=== PATIENT | female | born 1940 | race Caucasian/White ===

== ENCOUNTER → 2020-05-01 12:29 | Outpatient (CLI) | payer MEDICARE, OTHER, SELFPAY ==
--- NOTE | ~2020-05-01 | MM_ITS ---
EXAMINATION: MM screening tim BI w brianna HISTORY: Screening mammogram TECHNIQUE: Craniocaudal and mediolateral oblique 3-D tomosynthesis images were obtained and synthetic 2-D images were generated. CAD analysis was submitted and interpreted. COMPARISON: 03/04/2018, 02/16/2017, 03/10/2013 BREAST PARENCHYMAL COMPOSITION: The breasts are heterogeneously dense, which may obscure small masses . FINDINGS: Scattered benign-appearing calcifications are present. There is no evidence of suspicious m ass, calcification, or architectural distortion to suggest malignancy in either breast. There has bee n no suspicious interval change. IMPRESSION: 1. No mammographic evidence of malignancy. 2. Recommend routine screening mammography in one year. BI-RADS Category 2: Benign finding(s). Reviewed, dictated and finalized at location A. OL EXAMINER
== END ==
PROVIDERS: PCP Family Medicine; Visit Provider Physician Assistant
DX: Z12.31 Encounter for screening mammogram for malignant neoplasm of breast (principal)
CPT/HCPCS: 77063; 77067

== ENCOUNTER 2020-07-20 09:13 | Outpatient (CLI) | payer MEDICARE, OTHER, SELFPAY | END 2020-07-20 09:14 | disposition home or self-care (01) | LOC: ANHCOVIDVC 09:13 | PROVIDERS: PCP Family Medicine | DX: Z23 Encounter for immunization (principal) | CPT/HCPCS: 0001A; 91300 ==

== ENCOUNTER 2020-07-23 07:09 | Outpatient (CLI) | payer MEDICARE, OTHER, SELFPAY ==
[2020-07-23 07:59] LABS: Alanine Aminotransferase 13 U/L (4-35); Alkaline Phosphatase 50 U/L (38-126); Anion Gap 4 mmol/L (8-16); Aspartate Amino Transferase 31 U/L (14-36); Bilirubin,Total 0.5 mg/dL (0.2-1.3); Blood Urea Nitrogen 9 mg/dL (7-17); Calcium 8.9 mg/dL (8.4-10.2); Carbon Dioxide 35 mmol/L (22-30); Chloride 97 mmol/L (98-107); Estimated Glomerular Filt Rate > 60; Glucose 91 mg/dL (65-105); Potassium 3.7 mmol/L (3.4-5.0); Sodium 136 mmol/L (137-145)
[2020-07-23 08:54] LABS: Erythrocyte Sedimentation Rate 26 mm/hr (0-20)
[2020-07-23 10:11] LABS: Rheumatoid Factor < 8.6 IU/ML (<12)
[2020-07-26 05:11] LABS: Adrenocorticotropic Hormone 18 pg/mL (6-50)
[2020-07-27 08:16] LABS: Prolactin 2.2 ng/mL (***)
[2020-08-06 13:50] LABS: IGFBP-1 12
== END 2020-07-23 07:10 | disposition home or self-care (01) ==
PROVIDERS: PCP Family Medicine; Visit Provider Internal Medicine Endocrinology, Diabetes & Metabolism
DX: D35.2 Benign neoplasm of pituitary gland (principal); M19.90 Unspecified osteoarthritis, unspecified site
CPT/HCPCS: 36415; 80053; 82024; 82533; 84146; 84443; 85652; 86038; 86430

== ENCOUNTER 2020-08-10 09:22 | Outpatient (CLI) | payer MEDICARE, OTHER, SELFPAY | END 2020-08-10 09:23 | disposition home or self-care (01) | LOC: ANHCOVIDVC 09:22 | PROVIDERS: PCP Family Medicine | DX: Z23 Encounter for immunization (principal) | CPT/HCPCS: 0002A; 91300 ==

== ENCOUNTER 2020-09-12 10:45 | Outpatient (CLI) | payer MEDICARE, OTHER, SELFPAY ==
[2020-09-12 11:28] LABS: Eosinophils Absolute Auto 0.1 K/mm3 (0-0.3); Eosinophils Percent Auto 2.4 % (0-4.4); Hematocrit 34.8 % (37.0-47.0); Hemoglobin 11.8 g/dL (12.0-15.0); Immature Granulocyte Absolute 0.01 K/mm3 (0.00-0.031); Immature Granulocyte Percent A 0.2 % (0-0.5); Lymphocytes Absolute Auto 0.97 K/mm3 (0.9-3.2); Mean Corpuscular HGB Conc 33.9 g/dl (32-36); Mean Corpuscular Hemoglobin 29.9 pg (26-34); Mean Corpuscular Volume 88.1 fl (80-100); Mean Platelet Volume 8.7 fl (7.4-10.4); Monocytes Absolute Auto 0.4 K/mm3 (0.1-0.6); Monocytes Percent Auto 8.8 % (2.6-8.5); Neutrophils Absolute Auto 2.7 K/mm3 (1.3-6.7); Neutrophils Percent Auto 64.6 % (45.5-73.1); Platelet Count Result 152 k/mm3 (150-375); Red Blood Count 3.95 M/mm3 (4.2-5.4); Red Cell Distribution Width 12.1 % (11.5-14.5); White Blood Count 4.2 K/mm3 (4.5-10.0)
== END 2020-09-12 10:46 | disposition home or self-care (01) ==
PROVIDERS: PCP Family Medicine; Visit Provider Family Medicine
DX: R60.9 Edema, unspecified (principal); D64.9 Anemia, unspecified
CPT/HCPCS: 36415; 85025

== ENCOUNTER 2020-09-12 10:51 | Outpatient (CLI) | payer MEDICARE, OTHER, SELFPAY ==
[2020-09-12 11:42] LABS: Alanine Aminotransferase 11 U/L (4-35); Albumin Level 4.2 g/dL (3.5-5.1); Alkaline Phosphatase 47 U/L (38-126); Anion Gap 5 mmol/L (8-16); Aspartate Amino Transferase 29 U/L (14-36); Bilirubin,Total 0.3 mg/dL (0.2-1.3); Blood Urea Nitrogen 12 mg/dL (7-17); Calcium 8.8 mg/dL (8.4-10.2); Carbon Dioxide 29 mmol/L (22-30); Chloride 100 mmol/L (98-107); Estimated Glomerular Filt Rate > 60; Glucose 84 mg/dL (65-105); Potassium 3.8 mmol/L (3.4-5.0); Sodium 134 mmol/L (137-145)
[2020-09-12 12:48] LABS: Free T4 Free Thyroxine 1.16 ng/mL (0.78-2.19)
[2020-09-12 12:49] LABS: Folic Acid 12.8 ng/mL (2.76->20)
[2020-09-16 09:00] LABS: Prolactin 1.5 ng/mL (***)
== END 2020-09-12 10:52 | disposition home or self-care (01) ==
PROVIDERS: PCP Family Medicine
DX: D35.2 Benign neoplasm of pituitary gland (principal); I10 Essential (primary) hypertension; E53.8 Deficiency of other specified B group vitamins
CPT/HCPCS: 36415; 80053; 82607; 82746; 84146; 84439; 84443; 85025

== ENCOUNTER 2020-09-18 08:27 | Outpatient (CLI) | payer MEDICARE, OTHER, SELFPAY ==
[2020-09-18 09:11] LABS: Reticulocyte Hemoglobin Conten 34.8 pg (28.2-35.7); Reticulocyte Percent 1.46 % (0.7-4.3); Reticulocytes Absolute 0.06 B/L (32.2-175.7)
[2020-09-18 09:36] LABS: Iron 87 ug/dL (37-170)
[2020-09-18 09:45] LABS: Percent Iron Saturation 25 % (20-50)
[2020-09-22 10:26] LABS: Red Blood Cell Folate 702 ng/mL RBC (>280)
== END 2020-09-18 08:28 | disposition home or self-care (01) ==
PROVIDERS: PCP Family Medicine; Visit Provider Family Medicine
DX: D64.9 Anemia, unspecified (principal)
CPT/HCPCS: 36415; 82607; 82728; 82747; 83540; 83550; 85046

== ENCOUNTER 2021-02-18 17:11 | Emergency (ER) | payer MEDICARE, OTHER, SELFPAY ==
--- NOTE | ~2021-02-18 | XR_ITS ---
EXAMINATION: XR foot RT min 3V EXAM DATE: 02/18/2021 17:30 INDICATION: fall down steps yesterday/medial foot pain. TECHNIQUE: Right foot dorsoplantar, lateral and oblique projections obtained and reviewed. Correlati on is made to calcaneus x-ray 2011. FINDINGS: Right metatarsal bones unremarkable. There are no acute right foot fractures or dislocatio ns identified. There is no subcutaneous gas. There is soft tissue swelling over the midfoot medially . There are no radiopaque foreign bodies. IMPRESSION: 1. XR foot RT min 3V exam without acute osseous findings. 2. Soft tissue swelling. . Reviewed, dictated and finalized at location A.
[2021-02-18 17:22] VITALS: BP 181/88; PULSE 83; RESP 18; TEMP 36.8; O2SAT 100
--- NOTE | 2021-02-18 17:51 | ED.LOWEXIN ---
HPI - Extremity Injury (Lower) General Chief Complaint: Extremity Injury, Lower Stated Complaint: Rt foot pain due to fall Time Seen by Provider: 02/18/21 17:41 Source: patient and RN notes reviewed Mode of arrival: ambulatory Limitations: no limitations History of Present Illness HPI Narrative: 80-year-old female presents with concern for right foot pain and swelling. Reports yesterday she slid down stairs causing the injury. Reports she has been walking on it, however it hurts to walk on. She denies other intervention. Reports pain with flexing the ankle and toes. MD complaint: foot injury Related Data Home Medications Medication Instructions Recorded Confirmed metoprolol succinate 25 mg 25 mg PO DAILY 08/07/20 02/18/21 tablet,extended release 24 hr vitamin B complex [B 1 tablet PO DAILY 02/18/21 02/18/21 Complex-Vitamin B12] Allergies Allergy/AdvReac Type Severity Reaction Status Date / Time codeine Allergy Intermediate severe Verified 02/18/21 17:24 itching Review of Systems Review of Systems: CONSTITUTIONAL: Denies malaise, chills, sweats, or fever. SKIN: Denies lacerations, abrasions MUSCULOSKELETAL: Reports right foot pain and swelling NEUROLOGIC: Denies numbness, weakness All systems reviewed & are unremarkable except as noted in HPI and below PMFSH Family History Family History Grandparent Family history of glaucoma Cerebrovascular accident Carcinoma of colon Sibling Family history of cardiovascular disease Family history of lung cancer Mother Diabetes mellitus Father Depression Hypertension Cerebrovascular accident Social History Social History Alcohol intake: never Comments At time of signature, agree with nursing past medical, surgical, social and family history. There is no relevant family history pertinent to the presenting complaint Exam Narrative: GENERAL: Well-appearing, well-nourished, and in no acute distress. HEAD: Normocephalic, atraumatic. EYES: PERRLA, conjunctivae clear NECK: Supple. CHEST: Speaks in full sentences. No respiratory distress. HEART: Regular rate and rhythm. Normal and equal peripheral pulses. EXTREMITIES: Right foot, digits have normal sensation, limited range of motion. Moderate dorsal edema, mild ecchymosis. 5/5 strength with digit flexion and extension. Normal sensation with sensitivity to light touch and pain. No point tenderness. No open wounds, no skin tenting, no devitalized tissue or atrophy, no trophic changes, no obvious deformity, alignment normal, nearby joints and structures intact. Distal pulses palpable and equal bilaterally, skin warm, dry, pink. Capillary refill less than 3 seconds. SKIN: Warm, dry, no rash. NEURO: Alert and oriented x3. PSYCH: Normal mood and affect Course Course Emergency Course: Patient is aware of diagnosis, understands and agrees to treatment plan. Anticipatory guidance given. Patient agrees to follow-up as directed and is aware of reasons to seek care at the emergency department. Portions of this record may have been created with voice recognition software Vital Signs Vital signs: Vital Signs Temperature 98.2 F 02/18/21 17: Pulse Rate 83 02/18/21 17:22 Respiratory Rate 18 02/18/21 17:22 Blood Pressure 181/88 H 02/18/21 17:22 Pulse Oximetry 100 02/18/21 17:22 Temperature 98.2 F 02/18/21 17:22 Pulse Rate 83 02/18/21 17:22 Respiratory Rate 18 02/18/21 17:22 Blood Pressure 181/88 H 02/18/21 17:22 Pulse Oximetry 100 02/18/21 17:22 Reviewed. MDM - Extremity Injury (Lower) MDM Narrative Medical decision making narrative: Patients injury and pain is consistent with musculoskeletal etiology. No signs of neurological or vascular compromise on exam. Compartments and tissues are soft without signs of compartment syndrome. Pain is felt appropriate for fur
== END 2021-02-18 18:02 | disposition home or self-care (01) ==
PROVIDERS: Emergency Provider Nurse Practitioner; PCP Family Medicine
DX: S99.921A Unspecified injury of right foot, initial encounter (principal); W10.9XXA Fall (on) (from) unspecified stairs and steps, initial encounter; I10 Essential (primary) hypertension; M19.90 Unspecified osteoarthritis, unspecified site; D64.9 Anemia, unspecified; F32.A Depression, unspecified
CPT/HCPCS: 73630; 99213; G0463

== ENCOUNTER 2021-03-15 11:42 | Outpatient (CLI) | payer MEDICARE, OTHER, SELFPAY ==
--- NOTE | ~2021-03-15 | XR_ITS ---
EXAMINATION: XR foot RT min 3V DATE: 03/15/2021 12:21 INDICATION: Right foot pain. TECHNIQUE: 4 views of right foot were obtained. COMPARISON: Right foot radiographs 02/18/2021 FINDINGS: There is dorsiflexion of the metatarsophalangeal joints. No fracture. There is mild osteoar thritis of first metatarsophalangeal joint and many of the interphalangeal joints. There are enthesop hytes at the posterior and plantar aspects of calcaneal tuberosity. IMPRESSION: 1. Mild polyarticular osteoarthritis. Reviewed, dictated and finalized at location A.
[2021-03-15 12:19] LABS: Basophils Percent Auto 0.7 % (0.2-1.2); Eosinophils Absolute Auto 0.1 K/mm3 (0-0.3); Eosinophils Percent Auto 2.9 % (0-4.4); Hematocrit 36.6 % (37.0-47.0); Hemoglobin 12.3 g/dL (12.0-15.0); Immature Granulocyte Absolute 0.01 K/mm3 (0.00-0.031); Immature Granulocyte Percent A 0.2 % (0-0.5); Immature Platelet Fraction Pct 2.2 % (0.9-11.2); Lymphocytes Absolute Auto 0.91 K/mm3 (0.9-3.2); Lymphocytes Percent Auto 20.6 % (18.3-44.2); Mean Corpuscular HGB Conc 33.6 g/dl (32-36); Mean Corpuscular Hemoglobin 30.4 pg (26-34); Mean Corpuscular Volume 90.4 fl (80-100); Mean Platelet Volume 8.9 fl (7.4-10.4); Monocytes Absolute Auto 0.3 K/mm3 (0.1-0.6); Monocytes Percent Auto 6.8 % (2.6-8.5); Neutrophils Percent Auto 68.8 % (45.5-73.1); Platelet Count Result 189 k/mm3 (150-375); Red Blood Count 4.05 M/mm3 (4.2-5.4); Red Cell Distribution Width 12.3 % (11.5-14.5); White Blood Count 4.4 K/mm3 (4.5-10.0)
[2021-03-15 12:40] LABS: Alanine Aminotransferase 13 U/L (4-35); Albumin Level 4.4 g/dL (3.5-5.1); Alkaline Phosphatase 64 U/L (38-126); Anion Gap 10 mmol/L (8-16); Aspartate Amino Transferase 29 U/L (14-36); Bilirubin,Total 0.7 mg/dL (0.2-1.3); Blood Urea Nitrogen 19 mg/dL (7-17); Calcium 9.2 mg/dL (8.4-10.2); Carbon Dioxide 28 mmol/L (22-30); Chloride 102 mmol/L (98-107); Estimated Glomerular Filt Rate 60; Glucose 103 mg/dL (65-110); Potassium 3.6 mmol/L (3.4-5.0); Sodium 140 mmol/L (137-145)
[2021-03-15 12:53] LABS: Free T4 Free Thyroxine 1.38 ng/mL (0.78-2.19)
[2021-03-15 14:02] LABS: Folic Acid 10.4 ng/mL (2.76->20); Vitamin B12 > 1000.0 pg/mL (239-931)
[2021-03-20 05:26] LABS: Prolactin 1.9 ng/mL (***)
== END 2021-03-15 11:43 | disposition home or self-care (01) ==
PROVIDERS: PCP Family Medicine; Visit Provider Internal Medicine Endocrinology, Diabetes & Metabolism
DX: D35.2 Benign neoplasm of pituitary gland (principal); I10 Essential (primary) hypertension; E53.8 Deficiency of other specified B group vitamins; M19.071 Primary osteoarthritis, right ankle and foot
CPT/HCPCS: 36415; 73630; 80053; 82607; 82746; 84146; 84439; 84443; 85025; 85055

== ENCOUNTER 2021-06-26 08:11 | Outpatient (CLI) | payer MEDICARE, OTHER, SELFPAY ==
[2021-06-26 09:46] LABS: Hemoglobin A1C 5.3 % (<5.7)
[2021-06-26 09:48] LABS: Alanine Aminotransferase 12 U/L (4-35); Albumin Level 4.1 g/dL (3.5-5.1); Alkaline Phosphatase 62 U/L (38-126); Anion Gap 8 mmol/L (8-16); Aspartate Amino Transferase 27 U/L (14-36); Bilirubin,Total 0.6 mg/dL (0.2-1.3); Blood Urea Nitrogen 23 mg/dL (7-17); Calcium 9.3 mg/dL (8.4-10.2); Carbon Dioxide 28 mmol/L (22-30); Chloride 104 mmol/L (98-107); Cholesterol 202 mg/dL (0-200); Estimated Glomerular Filt Rate 53; Glucose 99 mg/dL (65-110); HDL Direct 64 mg/dL; Potassium 3.8 mmol/L (3.4-5.0); Sodium 140 mmol/L (137-145); Triglycerides 65 mg/dL (<150)
[2021-06-26 10:00] LABS: LDL Cholesterol Direct 85 mg/dL
[2021-06-26 10:06] LABS: Free T4 Free Thyroxine 1.49 ng/mL (0.78-2.19)
[2021-06-29 02:04] LABS: Insulin Level Total 3.8 uIU/mL (<=19.6)
[2021-06-29 07:40] LABS: Prolactin 2.3 ng/mL (***)
== END 2021-06-26 08:12 | disposition home or self-care (01) ==
PROVIDERS: PCP Family Medicine; Visit Provider Internal Medicine Endocrinology, Diabetes & Metabolism
DX: R73.01 Impaired fasting glucose (principal); I10 Essential (primary) hypertension; D35.2 Benign neoplasm of pituitary gland
CPT/HCPCS: 36415; 80053; 80061; 83036; 83525; 84146; 84439; 84443

== ENCOUNTER 2021-07-02 12:37 | Outpatient (CLI) | payer MEDICARE, OTHER, SELFPAY ==
--- NOTE | ~2021-07-02 | MR_ITS ---
EXAMINATION: MR pituitary wo/w con DATE: 07/02/2021 14:22 INDICATION: Benign neoplasm of pituitary gland. TECHNIQUE: Magnetic resonance imaging (MRI) of the brain and brainstem was performed without and with 11 mL MultiHance intravenous contrast. Whole-brain sequences included sagittal T1-weighted FSE, axia l diffusion-weighted FS EPI, axial T2*-weighted GRE, axial T2-weighted FLAIR Propeller, axial SWAN, a nd axial T2-weighted Propeller. Small fzfjd-hq-eiiy sequences included sagittal and coronal T1-weight ed FSE centered at the pituitary. Postcontrast sequences included small ryonj-ct-isdp coronal T1-sanford ghted FSE in a time course and sagittal T1-weighted FSE and whole-brain axial T1-weighted FSE. Appare nt diffusion coefficient (ADC) maps were created. COMPARISON: Brain MRI 03/06/2011 FINDINGS: There is a 1.6 x 0.7 x 1.5 cm cystic mass in the pituitary. There is leftward displacement of the infundibulum. There are scattered areas of nonspecific increased T2-weighted signal intensity in the cerebral white matter, which is within normal limits for the patient's age. There is no acute ischemic infarct. There are punctate foci of susceptibility artifact in the right basal ganglia and r ight insula, likely old microhemorrhages. The ventricles are normal in size. There are likely changes of ocular lens replacement surgeries. There is mild mucosal thickening in the ethmoid sinuses. The m astoid air cells are normal. IMPRESSION: 1. 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 The prior MRI demonstrated a solid 2.1 x 1.9 x 1.9 cm ma ss on 03/06/2011. 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 Reviewed, dictated and finalized at location A. OR WOMEN'S GARMENT ALTERATION IMPRESSION: 1. 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 The prior MRI demonstrated a solid 2.1 x 1.9 x 1.9 cm mass on 03/06/2011. 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
== END 2021-07-02 12:38 | disposition home or self-care (01) ==
LOC: ANHIMG 12:39
PROVIDERS: PCP Family Medicine; Visit Provider Internal Medicine Endocrinology, Diabetes & Metabolism
DX: D35.2 Benign neoplasm of pituitary gland (principal)
CPT/HCPCS: 70553; A9577

== ENCOUNTER 2021-10-09 10:00 | Outpatient (CLI) | payer MEDICARE, OTHER, SELFPAY ==
[2021-10-09 11:07] LABS: Cortisol Random 5.17 ug/dL
[2021-10-15 12:49] LABS: Adrenocorticotropic Hormone 9 pg/mL (6-50)
== END 2021-10-09 10:01 | disposition home or self-care (01) ==
PROVIDERS: PCP Family Medicine
DX: D35.2 Benign neoplasm of pituitary gland (principal)
CPT/HCPCS: 36415; 82024; 82533

== ENCOUNTER 2022-01-07 11:08 | Outpatient (CLI) | payer MEDICARE, OTHER, SELFPAY ==
[2022-01-07 12:19] LABS: Hemoglobin A1C 5.2 % (<5.7)
[2022-01-07 12:20] LABS: Cholesterol 200 mg/dL (0-200); HDL Direct 79 mg/dL; Triglycerides 70 mg/dL (<150)
[2022-01-07 12:32] LABS: LDL Cholesterol Direct 81 mg/dL
[2022-01-10 12:40] LABS: Insulin Level Total 2.3 uIU/mL (<=19.6)
[2022-01-11 07:20] LABS: Prolactin 1.1 ng/mL (***)
== END 2022-01-07 11:09 | disposition home or self-care (01) ==
PROVIDERS: PCP Family Medicine; Visit Provider Internal Medicine Endocrinology, Diabetes & Metabolism
DX: R73.01 Impaired fasting glucose (principal); D35.2 Benign neoplasm of pituitary gland; I10 Essential (primary) hypertension
CPT/HCPCS: 36415; 80061; 83036; 83525; 84146; 84436; 84443

== ENCOUNTER 2022-02-18 14:40 | Outpatient (CLI) | payer MEDICARE, OTHER, SELFPAY ==
--- NOTE | ~2022-02-18 | DEXA_ITS ---
Bone Density Report Name: JUAN KRISHNAMURTHY Age: 81 Sex: Female Ethnicity: White Date of : 1940 Indication: postmenopausal osteoporosis; height loss; Referring Provider: FERNANDO, BARRY Jenkins Study: Bone densitometry was performed. Exam Date: February 18, 2022 Accession number: [id number] Bone Density: Region BMD T-score Z-score Classification AP Spine(L1-L4) 0.827 -2.0 0.7 Osteopenia Femoral Neck (Left) 0.653 -1.8 0.6 Osteopenia Total Hip (Left) 0.731 -1.7 0.4 Osteopenia Femoral Neck (Right) 0.645 -1.8 0.5 Osteopenia Total Hip (Right) 0.712 -1.9 0.2 Osteopenia Total Hip Mean 0.722 -1.8 0.3 Osteopenia World Health Organization criteria for BMD impression classify patients as: Normal (T-score at or above -1.0), Osteopenia (T-score between -1.0 and -2.5), or Osteoporosis (T-score at or below -2.5). 10-year Fracture Risk(1): Major Osteoporotic Fracture 15% Hip Fracture 4.1% Reported Risk Factors: [place] (), Neck BMD=0.645, BMI=26.8 (1) FRAX(R) Version 3.08. Fracture probability calculated for an untreated patient. Fracture probability may be lower if the patient has received treatment. Previous Exams: Region Exam Age BMD T-score BMD Change BMD Change Date g/cm2 vs Baseline vs Previous AP Spine (L1-L4) 02/18/2022 81 0.827 -2.0 0.077 (10.2%)* 0.077 (10.2%)* 02/16/2017 76 0.750 -2.7 Total Hip(Left) 02/18/2022 81 0.731 -1.7 -0.048 (-6.2%) -0.048 (-6.2%) 02/16/2017 76 0.779 -1.3 Total Hip(Right) 02/18/2022 81 0.712 -1.9 -0.035 (-4.7%) -0.035 (-4.7%) 02/16/2017 76 0.747 -1.6 *Denotes significance at 95% confidence level, LSC for AP Spine = 0.022 g/cm2, LSC for Total Hip = 0.027 g/cm2 Clinical Information Provided by Patient: Patient maximum height was 61 Menopause Age: 49 No regular weight bearing exercise Does not regularly consume dairy products Onset of menses at age 14 Number of children 3 Impression: The patient has low bone mass, based on the Total Spine T-score. The patient has an estimated ten-year risk of hip fracture of 4.1% and an estimated ten-year risk of major fracture of 15%, based on the WHO FRAX algorithm. The BMD for the Total Hip(Left) decreased, changing by -6.2% since the last DXA exam. The BMD for the Total Hip(Right) decreased, changing by -4.7% since the last DXA exam. Discussion: BONE DENSITY IS LOW AT ONE OR MORE SKELETAL SITES. THE PATIENT'S BMD AND CLINICAL
--- NOTE | ~2022-02-18 | MM_ITS ---
EXAMINATION: MM screening tim BI w brianna HISTORY: Screening mammogram TECHNIQUE: Craniocaudal and mediolateral oblique 3-D tomosynthesis images were obtained and synthetic 2-D images were generated. CAD analysis was submitted and interpreted. COMPARISON: 05/01/2020, 03/04/2018, 02/16/2017 BREAST PARENCHYMAL COMPOSITION: The breasts are heterogeneously dense, which may obscure small masses . FINDINGS: Scattered benign-appearing calcifications are present. No suspicious mass, calcification, o r architectural distortion are identified in either breast to suggest malignancy. There has been no s uspicious interval change. IMPRESSION: 1. No mammographic evidence of malignancy. 2. Recommend routine screening mammography in one year. BI-RADS Category 2: Benign finding(s). Reviewed, dictated and finalized at location A.
== END 2022-02-18 14:41 | disposition home or self-care (01) ==
PROVIDERS: PCP Family Medicine; Visit Provider Internal Medicine Endocrinology, Diabetes & Metabolism
DX: Z12.31 Encounter for screening mammogram for malignant neoplasm of breast (principal); Z78.0 Asymptomatic menopausal state; M85.88 Other specified disorders of bone density and structure, other site; M85.852 Other specified disorders of bone density and structure, left thigh; M85.851 Other specified disorders of bone density and structure, right thigh
CPT/HCPCS: 77063; 77067; 77080

== ENCOUNTER 2022-08-27 08:52 | Outpatient (CLI) | payer MEDICARE, OTHER, SELFPAY ==
[2022-08-27 09:43] LABS: Alanine Aminotransferase 15 U/L (6-35); Albumin Level 4.5 g/dL (3.5-5.1); Alkaline Phosphatase 55 U/L (38-126); Anion Gap 4 mmol/L (8-16); Aspartate Amino Transferase 26 U/L (14-36); Bilirubin,Total 0.7 mg/dL (0.2-1.3); Blood Urea Nitrogen 13 mg/dL (7-17); Carbon Dioxide 30 mmol/L (22-30); Chloride 105 mmol/L (98-107); Estimated Glomerular Filt Rate > 60; Glucose 94 mg/dL (65-110); Potassium 3.8 mmol/L (3.4-5.0); Sodium 139 mmol/L (137-145)
[2022-08-27 10:03] LABS: Free T4 Free Thyroxine 1.63 ng/mL (0.78-2.19); Vitamin D 25 Hydroxy 46.7 ng/mL
[2022-08-31 15:14] LABS: Prolactin <1.0 ng/mL (***)
== END 2022-08-27 08:53 | disposition home or self-care (01) ==
LOC: ANHLAB 08:57
PROVIDERS: PCP Physician Assistant; Visit Provider Internal Medicine Endocrinology, Diabetes & Metabolism
DX: D35.2 Benign neoplasm of pituitary gland (principal); M85.80 Other specified disorders of bone density and structure, unspecified site
CPT/HCPCS: 36415; 80053; 82306; 84146; 84439; 84443

== ENCOUNTER 2022-12-04 14:29 | Outpatient (CLI) | payer MEDICARE, OTHER, SELFPAY ==
--- NOTE | 2022-12-04 14:50 | ECHO_ITS ---
Patient Info Name: Shadia Gillespie Age: 82 years : 1940 Gender: Female Ht: 61 in Wt: 130 lbs BSA: 1.60 m2 HR: 64 bpm BP: 172 / 84 mmHg Heart Rhythm: Sinus Rhythm Technical Quality: Good Exam Date: 12/04/2022 2:57 PM Exam Location: [facility] Patient Status: Outpatient Admit Date: 12/04/2022 Staff Ordering Physician: Caleb Craig PA-C Wire Fence Erector: Ginna Reyes RDCS Attending Provider: Caleb Craig PA-C Referring Physician: Rafa ALVARADO; Exam Type: CA echo doppler color flow Study Info Indications I35.0 - Nonrheumatic aortic (valve) stenosis I10 - Essential (primary) hypertension Complete two-dimensional, color flow and Doppler transthoracic echocardiogram is performed. Summary 1. Complete two-dimensional, color flow and Doppler transthoracic echocardiogram is performed. 2. Left ventricular chamber dimension is normal. 3. Left ventricular systolic function is normal, estimated at 60-65%. 4. The left ventricular diastolic function is grade II diastolic dysfunction. 5. E/e' 15 is elevated. 6. Left atrial chamber dimension is mildly enlarged. 7. There is mild aortic valve sclerosis. 8. There is mild aortic valve stenosis with a peak velocity of 183 cm/s, mean gradient of 7 mmHg, and aortic valve area of 1.8 cm2. 9. There is mild aortic valve regurgitation. 10. The mitral valve has mild anterior prolapse and moderate posterior prolapse. 11. There is mild to moderate mitral valve regurgitation. 12. There is mild to moderate tricuspid valve regurgitation. 13. No pulmonary hypertension, estimated pulmonary arterial systolic pressure is 35 mmHg. 14. There is trace pulmonic regurgitation. Left Ventricle E/e' 15 is elevated. Left ventricular chamber dimension is normal. Left ventricular systolic function is normal, estimated at 60-65%. The left ventricular diastolic function is grade II diastolic dysfunction. Right Ventricle Right ventricular systolic function is normal and with normal TAPSE 3.0 cm. Right ventricular chamber dimension is normal. Left Atria Left atrial chamber dimension is mildly enlarged. Right Atria Right atrial chamber dimension is normal. Aortic Valve The aortic valve is trileaflet. There is mild aortic valve sclerosis. There is mild aortic valve stenosis with a peak velocity of 183 cm/s, mean gradient of 7 mmHg, and aortic valve area of 1.8 cm2. There is mild aortic valve regurgitation. Pulmonic Valve There is trace pulmonic regurgitation. Mitral Valve The mitral valve has mild anterior prolapse and moderate posterior prolapse. There is no mitral valve stenosis. There is mild to moderate mitral valve regurgitation. Tricuspid Valve There is mild to moderate tricuspid valve regurgitation. No pulmonary hypertension, estimated pulmonary arterial systolic pressure is 35 mmHg. Pericardium/Pleural There is no pericardial effusion. Inferior Vena Cava Normal inferior vena cava with >50% collapse upon inspiration consistent with normal right atrial pressure, 5 mmHg. Aorta The aortic root size at the sinus of Valsalva is normal. Left Ventricular Outflow Tract Name Value Normal LVOT 2D LVOT Diameter 2.0 cm LVOT Doppler LVOT Peak Gradient
== END 2022-12-04 14:30 | disposition home or self-care (01) ==
PROVIDERS: PCP Physician Assistant; Visit Provider Physician Assistant
DX: I10 Essential (primary) hypertension (principal); I35.0 Nonrheumatic aortic (valve) stenosis; I34.0 Nonrheumatic mitral (valve) insufficiency; I36.1 Nonrheumatic tricuspid (valve) insufficiency; I35.1 Nonrheumatic aortic (valve) insufficiency
CPT/HCPCS: 93306

== ENCOUNTER 2023-02-14 08:53 | Outpatient (CLI) | payer MEDICARE, OTHER, SELFPAY ==
[2023-02-14 09:49] LABS: Hemoglobin A1C 5.2 % (<5.7)
[2023-02-14 10:08] LABS: Cortisol Random 8.48 ug/dL
[2023-02-19 05:20] LABS: Prolactin <1.0 ng/mL (***)
[2023-02-25 06:37] LABS: Insulin Level Total <1.0 uIU/mL (<=18.4)
== END 2023-02-14 08:54 | disposition home or self-care (01) ==
PROVIDERS: PCP Physician Assistant; Visit Provider Internal Medicine Endocrinology, Diabetes & Metabolism
DX: D35.2 Benign neoplasm of pituitary gland (principal); R73.01 Impaired fasting glucose
CPT/HCPCS: 36415; 82024; 82533; 83036; 83525; 84146

== ENCOUNTER → 2023-06-08 15:34 | Outpatient (CLI) | payer MEDICARE, OTHER, SELFPAY ==
--- NOTE | ~2023-06-08 | MM_ITS ---
EXAMINATION: MM screening [facility] BI w brianna HISTORY: Screening mammogram TECHNIQUE: Craniocaudal and mediolateral oblique 3-D tomosynthesis images were obtained and synthetic 2-D images were generated. CAD analysis was submitted and interpreted. COMPARISON: 02/18/2022, 05/01/2020, 03/04/2018 BREAST PARENCHYMAL COMPOSITION: The breasts are heterogeneously dense, which may obscure small masses . FINDINGS: RIGHT BREAST: An asymmetry is present in the anterior third of the outer breast 3 cm from the nipple on the craniocaudal view. LEFT BREAST: No suspicious mass, calcification, or architectural distortion are identified to suggest malignancy. There has been no suspicious interval change. IMPRESSION: 1. Right breast asymmetry. 2. Additional mammographic views and possible breast ultrasound are recommended. BI-RADS Category 0: Incomplete: Needs additional imaging evaluation. Reviewed, dictated and finalized at location A. H DERRICK OPERATOR IMPRESSION: 1. Right breast asymmetry. 2. Additional mammographic views and possible breast ultrasound are recommended . BI-RADS Category 0: Incomplete: Needs additional imaging evaluation.
== END ==
PROVIDERS: PCP Physician Assistant; Visit Provider Physician Assistant
DX: Z12.31 Encounter for screening mammogram for malignant neoplasm of breast (principal); R92.8 Other abnormal and inconclusive findings on diagnostic imaging of breast
CPT/HCPCS: 77063; 77067

== ENCOUNTER 2023-06-17 10:30 | Outpatient (CLI) | payer MEDICARE, OTHER, SELFPAY ==
[2023-06-17 11:20] LABS: Alanine Aminotransferase 12 U/L (6-35); Albumin Level 4.5 g/dL (3.5-5.1); Alkaline Phosphatase 59 U/L (38-126); Anion Gap 7 mmol/L (8-16); Aspartate Amino Transferase 27 U/L (14-36); Bilirubin,Total 0.7 mg/dL (0.2-1.3); Blood Urea Nitrogen 21 mg/dL (7-17); Calcium 9.6 mg/dL (8.4-10.2); Carbon Dioxide 30 mmol/L (22-30); Chloride 102 mmol/L (98-107); Cholesterol 231 mg/dL (0-200); Estimated Glomerular Filt Rate 60; Glucose 96 mg/dL (65-110); HDL Direct 88 mg/dL; Potassium 4.2 mmol/L (3.4-5.0); Sodium 139 mmol/L (137-145); Triglycerides 83 mg/dL (<150)
[2023-06-17 11:32] LABS: LDL Cholesterol Direct 105 mg/dL
[2023-06-17 11:57] LABS: Free T4 Free Thyroxine 1.71 ng/mL (0.78-2.19)
[2023-06-17 12:26] LABS: Folic Acid 7.5 ng/mL (2.76->20)
[2023-06-20 07:46] LABS: Prolactin <1.0 ng/mL (***)
== END 2023-06-17 10:31 | disposition home or self-care (01) ==
LOC: ANHLAB 10:34
PROVIDERS: PCP Family Medicine; Visit Provider Nurse Practitioner Adult Health
DX: D64.9 Anemia, unspecified (principal); I10 Essential (primary) hypertension; E53.8 Deficiency of other specified B group vitamins; D35.2 Benign neoplasm of pituitary gland
CPT/HCPCS: 36415; 80053; 80061; 82607; 82746; 84146; 84439; 84443

== ENCOUNTER → 2023-06-30 08:09 | Outpatient (CLI) | payer MEDICARE, OTHER, SELFPAY ==
--- NOTE | ~2023-06-30 | MMUS_ITS ---
EXAMINATION: MM diagnostic tim RT w brianna, US breast RT limited HISTORY: Right breast asymmetry on screening mammogram TECHNIQUE: Additional 3-D tomosynthesis images of the right breast were performed and synthetic 2-D i mages were generated. CAD analysis was submitted and interpreted. High resolution limited right breas t ultrasound was performed. COMPARISON: 06/08/2023, 02/18/2022, 05/01/2020 FINDINGS: MAMMOGRAPHIC FINDINGS: There is an 11 mm x 9 mm oval, obscured, equal density mass in the anterior third of the outer breast at the 10:00 location, 2.5 cm from the nipple. ULTRASOUND: There is a 10 mm x 7 mm hypoechoic mass with irregular margins, posterior acoustic shadowing, and int ernal vascularity at the 9:00 location near the nipple. There is a 10 mm x 5 mm oval, isoechoic, and hypoechoic circumscribed mass with no posterior vascularity in the areas of posterior acoustic shadow ing at the 11:00 location near the nipple. IMPRESSION: 1. Suspicious right breast masses at the 9:00 and 11:00 locations. 2. Ultrasound-guided biopsy is recommended. BI-RADS category 4, suspicious findings. Reviewed, dictated and finalized at location A. SERVICE IMPRESSION: 1. Suspicious right breast masses at the 9:00 and 11:00 locations. 2. Ultrasound-guided biopsy is recommended. BI-RADS category 4, suspicious findings.
== END ==
PROVIDERS: PCP Physician Assistant; Visit Provider Physician Assistant
DX: R92.8 Other abnormal and inconclusive findings on diagnostic imaging of breast (principal)
CPT/HCPCS: 76642; 77061; 77065; G0279

== ENCOUNTER 2023-07-07 09:12 | Outpatient (CLI) | payer MEDICARE, OTHER, SELFPAY ==
--- NOTE | ~2023-07-07 | MMUS_ITS ---
US breast biopsy RT w image, MM post biopsy invasive RT EXAMINATION: US GUIDED NEEDLE BIOPSY WITH VACUUM ASSISTANCE DATE: 07/07/2023 12:02 OPTOMECHANICAL TECHNICIAN INDICATION: Right breast masses seen on prior examination. Ultrasound-guided core biopsy is requested to evaluate for malignancy. TECHNIQUE AND FINDINGS: The risks and potential benefits of the procedure were discussed with the patient, and written inform ed consent was obtained. After sterile preparation of the right breast, 1% lidocaine was utilized fo r local anesthesia. 1% lidocaine with epinephrine was used for deep anesthesia. Masses were localize d in the right breast at 11:00 and 9:00 in the subareolar locations. A 10G vacuum-assisted biopsy gun needle was advanced through to the outer edge of the region of inter est from a superior and lateral approach utilizing sonographic guidance. A total of 4 tissue core sa mples were obtained through each lesion. An Inrad tissue marker clip was then placed at each biopsy site. Hemostasis was achieved. The patient tolerated procedure well and there was no evidence of immediate complication. The patien t was given verbal instructions partly is from the department. Right breast mammograms to document t issue marker clip placement. The tissue samples were submitted to surgical pathology for histologic a nalysis. IMPRESSION: 1. Successful ultrasound-guided vacuum-assisted biopsy of right breast masses with tissue marker greg cement. Please refer to pathology report for histologic analysis. Reviewed, dictated and finalized at location A. MECHANICAL TECHNICIAN IMPRESSION: 1. Successful ultrasound-guided vacuum-assisted biopsy of right breast masses with tissue marker placement. Please refer to pathology report for histologic a nalysis.
== END 2023-07-07 09:13 | disposition home or self-care (01) ==
LOC: ANHIMG 09:13
PROVIDERS: PCP Physician Assistant; Visit Provider Physician Assistant Medical
DX: N63.10 Unspecified lump in the right breast, unspecified quadrant (principal); R92.8 Other abnormal and inconclusive findings on diagnostic imaging of breast; N61.0 Mastitis without abscess
CPT/HCPCS: 19083; 88305; A4648

== ENCOUNTER 2023-08-11 09:45 | Outpatient (CLI) | payer MEDICARE, OTHER, SELFPAY ==
--- NOTE | ~2023-08-11 | MMUS_ITS ---
EXAMINATION: US_MAGSEEDRT_US, MM post biopsy invasive RT HISTORY: Mag seed placement at prior ultrasound-guided 9:00 and 11:00 right breast biopsy sites TECHNIQUE: The purpose of the procedure, technique and potential complications were discussed with th e patient. The patient indicated understanding and gave consent. Timeout procedure was performed. The skin of the right breast was prepared with sterile solution. Sterile drapes were applied. 1% lidocaine local anesthetic was administered to the skin along the lateral aspect of the right antelmo st. The mag seed needle was placed from a lateral approach into the 9:00 lesion using ultrasound guid ance. The needle tip was placed medially contiguous with the existing ultrasound-guided biopsy marker . The mag seed was deployed to the tip of the needle and the needle withdrawn. The ultrasound images were made to show the mag seed marker contiguous with the ultrasound marker. Subsequently, the skin was prepared with 1% local anesthetic at the lateral aspect of the 11:00 lesio n. Pushpa needle was introduced into the 11:00 lesion in the region of the biopsy marker. The mag see d was deployed to the tip of the needle and immediate contiguity with the ultrasound marker and the n eedle was withdrawn. Ultrasound images were obtained to confirm mag seed placement adjacent to the ul trasound marker. ML and CC mammographic exposures were obtained, revealing the mag seed markers in immediate contiguit y with the previous ultrasound biopsy markers. COMPARISON: July 07, 2023 post biopsy right mammogram July 07, 2023 right ultrasound-guided biopsy June 30, 2023 limited right breast ultrasound FINDINGS: On both ultrasound and mammographic imaging the mag seed placements are contiguous with the ultrasound-guided biopsy markers in both 9:00 and 11:00 lesions. IMPRESSION: Successful mag seed placement at prior ultrasound guided biopsy lesions of right breast at 9:00 and 1 1:00 Reviewed, dictated and finalized at location A. IMPRESSION: Successful mag seed placement at prior ultrasound guided biopsy lesions of righ t breast at 9:00 and 11:00
== END 2023-08-11 09:46 | disposition home or self-care (01) ==
PROVIDERS: PCP Family Medicine; Visit Provider Physician Assistant Surgical
DX: R92.8 Other abnormal and inconclusive findings on diagnostic imaging of breast (principal); N63.10 Unspecified lump in the right breast, unspecified quadrant
CPT/HCPCS: 19285; A4648

== ENCOUNTER 2023-08-13 08:53 | Outpatient (CLI) | payer MEDICARE, OTHER, SELFPAY ==
--- NOTE | 2023-08-13 08:58 | ECG_ITS ---
Measurements Intervals [place] Rate: 67 P: 92 KS: 248 QRS: -20 QRSD: 110 T: 18 QT: 430 QTc: 456 Interpretive Statements SINUS RHYTHM WITH FIRST DEGREE AV BLOCK INTRAVENTRICULAR CONDUCTION DELAY DELAYED PRECORDIAL R/S TRANSITION BORDERLINE ST-T WAVE ABNORMALITY- INF/HIGH LAT LEADS BASELINE ARTIFACT- I, II, III, AVR, AVL, AVF, V1-V6 BORDERLINE ECG NO PREVIOUS ECG AVAILABLE FOR COMPARISON Electronically Signed On 08-13-2023 9:36:12 CDT by Rio Meneses D.O.
[2023-08-13 10:18] LABS: Anion Gap 5 mmol/L (4-12); Blood Urea Nitrogen 16 mg/dL (7-17); Calcium 9.3 mg/dL (8.4-10.2); Carbon Dioxide 30 mmol/L (22-30); Chloride 97 mmol/L (98-107); Estimated Glomerular Filt Rate 60; Glucose 109 mg/dL (65-110); Potassium 3.8 mmol/L (3.4-5.0); Sodium 132 mmol/L (137-145)
== END 2023-08-13 08:54 | disposition home or self-care (01) ==
LOC: ANHSURGERY 08:57
PROVIDERS: Anesthesiology; PCP Family Medicine; Visit Provider Surgery
DX: Z01.818 Encounter for other preprocedural examination (principal); I10 Essential (primary) hypertension; Z51.81 Encounter for therapeutic drug level monitoring; I44.0 Atrioventricular block, first degree; I45.89 Other specified conduction disorders; R93.1 Abnormal findings on diagnostic imaging of heart and coronary circulation
CPT/HCPCS: 36415; 80048; 93005

== ENCOUNTER 2023-08-19 02:01 | Day surgery (SDC) | payer MEDICARE, OTHER, SELFPAY ==
[2023-08-11 15:09] VITALS: BMI 24.1
--- NOTE | 2023-08-11 15:36 | PC.NURSE ---
Report to the Outpatient Waiting Room, entrance under the green pavilion located off [facility], at time __8:00AM on date __08/19/23 . Planned Procedure Time: __10:00AM . Time changes happen often and if your time is changed the preop area will call you the afternoon before. - You and your visitor will be asked to self-screen and do not enter if you have any COVID symptoms. - A mask is optional within the hospital at this time. Patients may have clear liquids (water, carbonated beverages, clear teas, apple juice) until 3 hours prior to surgery with a maximum of 20 ounces. - No food from midnight until time of surgery. Take the following medications with a SIP of water the morning of surgery: __AMLODIPINE & METOPROLOL DO NOT STOP ANY OF YOUR OTHER PRESCRIPTION MEDICATIONS PRIOR TO SURGERY ?EXCEPT THE FOLLOWING Medications to discontinue per physician ____HOLD ALL VITAMINS/SUPPLEMENTS 3 DAYS PRE-OP PER ANESTHESIA Date to take last dose 08/15/23 Please no make-up, nail azeri, hairspray, perfume, deodorant, or body powder the day of surgery. No jewelry (including any body piercings) or valuables the day of surgery, leave them at home. Please take a shower or bath the night before, or the morning of, surgery with an antibacterial soap. Wear comfortable, loose fitting clothing. - Jewelry must be removed prior to entering the operating room. Rings and piercings that are not removed may be cut off. - The hospital will not accept responsibility for valuables. - Please leave all valuables, including medications, at home the day of surgery. If you are going home after surgery, a licensed haul driver must drive you home. - NO public transportation without another adult if you receive anesthesia. - We recommend that an adult stay with you for 24 hours following discharge. - We also recommend that you do not drive, make important decision, drink alcoholic beverages, or take any drugs that were not prescribed by your health care provider for at least 24 hours after your discharge time. Follow any additional instructions given to you from your surgeon. If you or anyone in your household have experienced Covid symptoms in the past week, please notify your surgeon or the nurse liaison at the phone number below for possible testing. Telephone instructions given to ____PATIENT and asked if any additional questions and then verbalized understanding. Patient advised to call surgeon office or pre surgery nurse liaison [phone] if any additional questions.
[2023-08-19] VITALS (9 sets, daily range): BP systolic 116–135; BP diastolic 48–88; PULSE 57–68; RESP 12–18; TEMP 36.3–36.8; O2SAT 94–100; BMI 24.3
--- NOTE | ~2023-08-19 | MM_ITS ---
MM_FAXITRON_MG 08/19/2023 11:24 Indication: Post surgical biopsy specimen Procedure: Single surgical specimen of the right breast Comparison: 08/11/2023 Findings: There are 2 magseed is contained in the surgical specimen. Findings relayed to the clinical service by Dr. Valerio on 08/19/2023 at 11:25 AM. Impression: 1: Surgical specimen contains 2 magseed devices. Reviewed, dictated and finalized at location A. Impression: 1: Surgical specimen contains 2 magseed devices.
--- NOTE | 2023-08-19 09:13 | WPDHPUPDATE1 ---
History and Physical Update Update Date/Time: 08/19/23 09:13 Plan for right breast lumpectomy of 2 lesions with magseed localization History and Physical has been reviewed, including an updated exam of the patient. There are NO changes in the patient's condition. Risks, benefits, and alternatives have been discussed and questions answered. Patient agrees to proceed with procedure.
[2023-08-19] MEDS: LACTATED RINGERS 1,000 ML 30 ML IV CONT (09:19)
[2023-08-19] MEDS: ACETAMINOPHEN 500 MG TABLET 1000 MG PO (09:19)
--- NOTE | 2023-08-19 09:42 | WPDANESEPPF ---
Anes - Initial Pre Proc Eval Procedure: Operation Date: 08/19/23 10:00 Proposed Procedures p Right Breast Excisional Biopsy Times Two with Mag Seed Localization, Possible Adjacent Tissue Transfer - Nina Maddox MD Date/Time: 08/19/23 09:42 Surgeon: Nina Maddox MD Pre Op Diagnosis: lump right breast Patient Data Age: 82 Gender: F Height: 1.55 m Weight: 58.4 kg Last Vital Signs Temp 36.8 C 08/19/23 09:07 Pulse 68 08/19/23 09:07 Resp 16 08/19/23 09:07 BP 135/48 L 08/19/23 09:07 Pulse Ox 100 08/19/23 09:07 O2 Del Method Room Air 08/19/23 09:07 Allergies Allergy/AdvReac Type Severity Reaction Status Date / Time codeine Allergy Intermediate severe Verified 08/19/23 08:37 itching Home Medications Medication Instructions Recorded Confirmed Type cabergoline 0.5 mg tablet 1 mg PO 2XW #60 tabs 05/30/20 08/19/23 Rx metoprolol succinate 25 mg 25 mg PO DAILY 08/07/20 08/11/23 History tablet,extended release 24 hr vitamin B complex (B 1 tablet PO DAILY 02/18/21 08/19/23 History Complex-Vitamin B12 tablet) amlodipine 10 mg tablet 10 mg PO QAM 08/11/23 08/11/23 History losartan 50 mg-hydrochlorothiazide 1 tablet PO QAM 08/11/23 08/19/23 History 12.5 mg tablet tramadol 50 mg tablet 50 mg PO Q6H PRN pain #8 tabs 08/19/23 Rx Patient hx anesthesia problems: none Family hx anesthesia problems: none Results Review: All pre-operative results and documents have been reviewed as part of the pre-operative evaluation. [facility] Past Medical History Medical History (Updated 08/19/23 @ 10:05 by Ravinder Mishra DO) Hypertension Vitamin B 12 deficiency Wellness examination Family History Family History Grandparent Family history of glaucoma Cerebrovascular accident Carcinoma of colon Sibling Family history of cardiovascular disease Family history of lung cancer Mother Diabetes mellitus Father Depression Hypertension Cerebrovascular accident Social History Social History (Updated 08/06/23 @ 14:10 by Skye Ibanez MA) Smoking status: Never smoker Alcohol intake: never Do You Feel Safe in your Home?: Yes Lack of Transportation: No Lack of Food: Never True Current Housing: I Have Housing Concerned About Future Housing: No Difficulty Paying Gas/Electric Bills: No Difficulty Paying for Meds: No Currently Unemployed: No Education: High School Diploma/GED Difficulty w/ Childcare or Family Care: No Living arrangements: with family Additional living arrangements comments: HUSB Spiritual care concerns: No Anes - Eval Final PreProcedure Day of Procedure 08/19/23 09:42 Patient weight: normal Heart: regular rate and rhythm Lungs: clear to auscultation Airway: Mallampati scale class II Neurological: alert and oriented Last oral intake: >/= 8 hours ASA classification: II Emergent: no Anesthetic plan: proceed Anesthesia type and monitoring: general LMA and standard monitoring Results Review: All pre-operative results and documents have been reviewed as part of the pre-operative evaluation. Informed Consent: The patient's anesthetic plan and its attendant risks and benefits were discussed with the patient/family/POA. Questions were solicited and answers provided to the satisfaction of the patient/family/POA.
[2023-08-19] MEDS: ceFAZolin 2 GM/D5W 50 ML 2 GM/50 ML BAG IVPB (10:32)
[2023-08-19] MEDS: BUPIVACAINE/EPINEPHRINE 0.5% 30 ML VIAL INFILTRATE (10:57)
--- NOTE | 2023-08-19 11:36 | P.OP_ITS ---
Procedure Note - Detailed Date of Procedure 08/19/23 Pre-op Diagnosis Right breast mass x2, discordant needle biopsy findings Post-op Diagnosis Same Procedure Performed 1. Right lumpectomy with 2 magseeds for localization of 2 masses 2. Retroareolar mass excisional biopsy 3. Nipple skin shave biopsy Surgeon Nina Maddox MD Page Makeup System Operator Sunitha Mcleod PA-C Anesthesia General Description of Procedure Patient was identified in the pre-operative area and brought to the OR suite. She underwent mass localization previously by IR with magseed placement x2 for the two separate masses. She was laid supine in the operating table and sequential compression devices were applied. General anesthesia was induced without difficulties. The right chest was prepped and draped in a sterile fashion. The sentimag probe was used to identify the area where the magseed was placed and a superior periareolar incision was made. Dissection was carried down through the subcutaneous tissue into the breast tissue. The lesion was identified with palpation and using sentimag probe, and a rim of normal breast tissue was excised along with the tumor as our lumpectomy specimen. The 2nd Mag seed was found just superior lateral and was close enough to the 1st magseed that it was excised EN bloc along the rim of normal breast tissue. Once the specimen was completely excised, it was oriented using surgical paint according to unmanned equipment operator instructions. The specimen was placed in the faxitron and 2 ra diographs were obtained and sent to Radiology for radiographic confirmation of both magseeds within the specimen along several calcifications. Upon inspection of the Faxitron images I felt that the medial margin was very close to the Mag seed and I decided to take an extra medial margin. This was oriented and sent to pathology as a fresh specimen. Once the radiographic confirmation was received, the wound was irrigated with saline and hemostasis was assured. Another palpable hard nodule was felt in the retroareolar area of the breast that measured approximately 0.5 cm and this was excised and sent to pathology as a fresh specimen. Patient's nipple skin also appeared excoriated and decision was made to send a shave biopsy of the nipple skin of this area. I inspected the wound cavity again and patient did have several palpable calcifications throughout but no other suspicious findings. Hemostasis was again obtained. The deep dermal layer was approximated using interrupted 3-0 vicryl followed by 4-0 monocryl for the skin. Dermabond was applied followed by a surgical bra. Patient was awoken from anesthesia and taken to the recovery area in stable condition. All needles, instruments and sponge counts were correct as reported by the operating room staff. Patient tolerated the procedure well with no immediate complications. Sunitha Mcleod PA-C was required for positioning and retraction throughout the entire case. Estimated Blood Loss 5 Pathology Yes Complications No immediate complications Condition Stable Disposition PACU [facility] Billing Surgery - Charge Forward: Surgery Billing (CPT 34542, CPT 57238, CPT 91661)
--- NOTE | 2023-08-19 11:36 | SUR.OPER ---
1043- incision 1114-ischemia of mass 1116-Dr. Maddox marked mass 1118- mammography notified 1122- images sent to mammography 1126- specimens sent to lab via PCT Zana 1127- radiology read images 1131- Nellie in lab received specimen
[2023-08-19] MEDS: BACITRACIN OINTMENT 15 GM TUBE 1 APPLIC TOPICAL (11:39)
[2023-08-19] MEDS: oxyCODONE HCL (*CRX) 5 MG TAB IR PO (13:11)
== END 2023-08-19 13:38 | disposition home or self-care (01) ==
PROVIDERS: PCP Family Medicine; Visit Provider Surgery
PROC: (CPT 19301; principal; 2023-08-19 10:00)
DX: N60.31 Fibrosclerosis of right breast (principal); N60.41 Mammary duct ectasia of right breast; N60.21 Fibroadenosis of right breast; L98.8 Other specified disorders of the skin and subcutaneous tissue; I10 Essential (primary) hypertension; E53.8 Deficiency of other specified B group vitamins
CPT/HCPCS: 19301; 19120; 11102; 76098; 88305; 88307; A9270; J0690; J1100; J2371; J2405; J2704; J3010; J7120; Q9968

== ENCOUNTER 2023-10-23 08:37 | Outpatient (CLI) | payer MEDICARE, OTHER, SELFPAY ==
[2023-10-23 11:02] LABS: Alanine Aminotransferase 12 U/L (6-35); Albumin Level 4.5 g/dL (3.5-5.1); Alkaline Phosphatase 51 U/L (38-126); Anion Gap 7 mmol/L (4-12); Aspartate Amino Transferase 27 U/L (14-36); Bilirubin,Total 0.7 mg/dL (0.2-1.3); Blood Urea Nitrogen 20 mg/dL (7-17); Calcium 9.3 mg/dL (8.4-10.2); Carbon Dioxide 29 mmol/L (22-30); Chloride 100 mmol/L (98-107); Estimated Glomerular Filt Rate 60; Glucose 92 mg/dL (65-110); Magnesium 1.9 mg/dL (1.6-2.3); Potassium 3.8 mmol/L (3.4-5.0); Sodium 136 mmol/L (137-145)
[2023-10-23 11:46] LABS: Parathyroid Intact 27.8 pg/mL (7.5-53.5)
[2023-10-23 11:55] LABS: Vitamin D 25 Hydroxy 39.2 ng/mL
[2023-10-25 03:54] LABS: FSH 56.4 mIU/mL; Prolactin 1.2 ng/mL
[2023-10-26 16:08] LABS: Growth Hormone ICMA 1.2 ng/mL (< OR = 7.1)
[2023-10-28 18:58] LABS: Adrenocorticotropic Hormone 16 pg/mL (6-50)
[2023-10-30 14:53] LABS: Z Score Female -0.1 SD (-2.0 - +2.0)
[2023-11-04 10:30] LABS: Reference Lab Test Result 0.3
== END 2023-10-23 08:38 | disposition home or self-care (01) ==
PROVIDERS: PCP Family Medicine; Visit Provider Internal Medicine
DX: D35.2 Benign neoplasm of pituitary gland (principal); M85.80 Other specified disorders of bone density and structure, unspecified site
CPT/HCPCS: 36415; 80053; 81050; 82024; 82306; 82340; 82533; 82570; 83001; 83002; 83003; 83735; 83970; 84100; 84146; 84305; 84439; 84443

== ENCOUNTER 2023-10-24 08:07 | Outpatient (CLI) | payer MEDICARE, OTHER, SELFPAY ==
[2023-10-24 11:30] LABS: Total Volume 24 Hour Urine 1800 ml
[2023-10-24 12:36] LABS: Creatinine 24 Hour Urine 0.7 gm/24 (0.8-1.8); Creatinine Urine 43.7 mg/dL
[2023-10-27 15:56] LABS: Total Volume 1900 mL
== END 2023-10-24 08:08 | disposition home or self-care (01) ==
LOC: ANHLAB 08:10
PROVIDERS: PCP Family Medicine; Visit Provider Internal Medicine
DX: M85.80 Other specified disorders of bone density and structure, unspecified site (principal)
CPT/HCPCS: 81050; 82340; 82570

== ENCOUNTER 2023-12-21 14:06 | Outpatient (CLI) | payer MEDICARE, OTHER, SELFPAY ==
--- NOTE | ~2023-12-21 | MR_ITS ---
EXAMINATION: MR pituitary wo/w con DATE: 12/21/2023 16:04 INDICATION: Benign neoplasm of pituitary gland. TECHNIQUE: Magnetic resonance imaging (MRI) of the brain and brainstem was performed without and with 10 mL MultiHance intravenous contrast. COMPARISON: Brain MRI 07/02/2021, 03/06/2011 FINDINGS: There is a 1.6 x 1.6 x 0.6 cm cystic pituitary mass. There are scattered areas of nonspecif ic increased T2-weighted signal intensity in the cerebral white matter, which is within normal limits for the patient's age. There is no intracranial hemorrhage or acute ischemic infarct. The ventricles are normal in size. There are likely changes of ocular lens replacement surgeries. The paranasal sin uses are clear. The mastoid air cells are normal. IMPRESSION: 1. Cystic pituitary mass, stable from 07/02/21 and decreased in size from 03/07/2011, consistent with a pituitary macroadenoma. Reviewed, dictated and finalized at location A. IMPRESSION: 1. Cystic pituitary mass, stable from 07/02/21 and decreased in size from 2010, consistent with a pituitary macroadenoma.
== END 2023-12-21 14:07 | disposition home or self-care (01) ==
LOC: ANHIMG 14:07
PROVIDERS: PCP Family Medicine; Visit Provider Internal Medicine
DX: D35.2 Benign neoplasm of pituitary gland (principal)
CPT/HCPCS: 70553; A9577

== ENCOUNTER 2024-05-25 10:25 | Outpatient (CLI) | payer MEDICARE, OTHER, SELFPAY ==
--- NOTE | ~2024-05-25 | XR_ITS ---
Right Shoulder Technique: AP and scapular Y views were obtained. Clinical History: Pain Findings: No fracture or dislocation is seen. Osseous alignment is anatomic. The glenohumeral joint i s intact. There is minimal AC joint degenerative change. Soft tissues are unremarkable. Impression: Minimal AC joint degenerative change. Reviewed, dictated and finalized at [facility]. NG IN LINE FEEDER Impression: Minimal AC joint degenerative change.
== END 2024-05-25 10:26 | disposition home or self-care (01) ==
PROVIDERS: PCP Family Medicine
DX: M25.511 Pain in right shoulder (principal)
CPT/HCPCS: 73030

== ENCOUNTER 2024-10-05 09:14 | Outpatient (CLI) | payer MEDICARE, OTHER, SELFPAY ==
--- OUTSIDE RECORDS SUMMARY | 2024-10-05 09:53 | XMS_ITS | Data Portability ---
Author Organization [facility] [employer], Main Office Address [address] [place] [address] Care Team Providers Care Promotional Marketing Agent Name Role Phone NATE LOUIE Primary Care Provider Assessment No assessment recorded. Plan of Treatment Reminders Order Date Submit Date Provider Last Modified By Organization Details Last Modified Time Details Appointments None recorded. Lab None recorded. Referral endocrinolo gy referral 2022 023 [email or web address] Priscila Gary MD, [address],, [facility] [address], [place], [address], 3 15:18:53 Procedures None recorded. Surgeries None recorded. Imaging None recorded. Medication Orders cabergoline 0.5 mg tablet 2022 023 [facility] 2425, [address] [facility], [place], [address], 14:29:01 Patient TargetsNo targets recorded. Patient InstructionsNo instructions recorded. Reason for Referral Endocrinology Referral for P rolactinoma Referring Physician: Yusra Casanova, Endocrinology, Encounter Date: 02/24/2023 Results Created Date Observation Date Name Description Value Unit Range Abnormal Flag Note LastModifiedBy Organization Detail LastModifiedTime 03/15/2003/15/2021 XR, foot No observ ation record ed. [id number] [facility] (Imaging) [address] [facility] [address], [place], [address], 07/16/2022 00:55:13 07/03/19 22 07/02/2021 MRI, pitui tary, w/wo contr ast No observ ation record ed. [id number], [place], [address], 07/16/2022 00:55:13 02/20/2002/18/2022 MAMMO , scree clarice, digit al, bilat eral No observ ation record ed. [id number], [place], [address], 07/16/2022 00:55:13 02/22/20 22 02/18/2022 bone densi ty No observ ation record ed. [id number] [address], [place], [address], 07/16/2022 00:55:13 Result Notes None recorded. Problems Name Problem SNOMED Code Status Onset Date Resolution Date Notes Provider Name and Address Organization Details Recorded Time Hypertensive disorder 54419828 Active 2021 Not Available [facility] 3 00:47:31 Essential hypertension 02986037 Active 2021 Not Available [facility] 3 00:47:32 Prolactinoma 727470969 Active 2022 JOSH Seth, [facility] 3 18:30:25 Impaired fasting glycemia 795205227 Active 2022 JOSH Seth, [facility] 3 18:31:14 Osteopenia 679214987 Active 2022 Yusra Casanova MD [address], [address] , [facility] 3 14:33:32 Problem Notes None recorded. Procedures Surgical History None recorded. Imaging Results Imaging Date Name Status LastModified by [facility] Details LastModified Time 03/15/2021 XR, foot completed [id number] 026 [facility] (Imaging) [address] [place], [place] [address]e [facility], [place], [address], 07/16/2022 00:55:13 07/02/2021 MRI, pituitary, w/wo contrast completed [id number] [id number] [facility] [address], [place], [address], 07/16/2022 00:55:13 02/18/2022 MAMMO, screening, digital, bilateral completed [id number] [address], [place], [address], 07/16/2022 00:55:13 02/18/2022 bone density completed [id number].[id number], [place], [address], 07/16/2022 00:55:13 Procedure Notes None recorded. Medical Equipment None Reported. Allergies No known drug allergies Medications Name Sig Start Date Stop Date Status Note LastModified by Organization Details LastModified Time cyclobenzap rine 10 mg tablet TAKE 1 TABLET BY MOUTH THREE TIMES DAILY 02/24 completed Not Available Not Available Not Available metoprolol succinate ER 100 mg tablet,exte nded release 24 hr TAKE 1 TABLET BY MOUTH DAILY 09/07 completed Not Available Not Available Not Available amlodipine 5 mg tablet TAKE 1 TABLET BY MOUTH ONCE DAILY IN THE MORNING FOR 90 DAYS active Not Available Not Available No t Available amlodipine 10 mg tablet TAKE 1 TABLET BY MOUTH ONCE DAILY IN THE MORNING active Not Available Not Available No t Available cabergoline 0.5 mg tablet TAKE 1 TABLET BY MOUTH TWICE A WEEK IN THE MORNING 2022 active Not Available Not Available Not Avai lable hydrochloro thiazide 12.5 mg capsule TK 1 C PO D 07/19 completed Not Available Not Available Not Available fluoxetine 10 mg capsule TAKE 1 CAPSULE BY MOUTH DAILY 02/24 completed Not Available Not Available Not Available cyanocobala min (vit B-12) 1,[address] 1 tablet every day by sublingua l route in the morning for 90 days. 03/26 completed Not Available Not Available Not Available metoprolol succinate ER 25 mg tablet,exte nded release 24 hr TAKE 1/2 TABLET BY MOUTH ONCE DAILY IN THE MORNING FOR 90 DAYS active Not Available Not Available No t Available losartan 50 mg-hydrochl orothiazide 12.5 mg tablet TAKE 1 TABLET BY MOUTH DAILY 09/07 completed Not Available Not Available Not Available losartan 100 mg tablet TAKE 1 TABLET BY MOUTH ONCE DAILY IN THE MORNING active Not Available Not Available No t Available naproxen 500 mg tablet TAKE 1 TABLET BY MOUTH TWICE DAILY 02/24 completed Not Available Not Available Not Available amoxicillin 875 mg-potassiu m clavulanate 125 mg tablet TK 1 T PO Q 12 H 07/19 completed Not Available Not Available Not Available amoxicillin 500 mg-potassiu m clavulanate 125 mg tablet TAKE 1 TABLET BY MOUTH EVERY 8 HOURS 02/24 completed Not Available Not Available Not Available cyanocobala min (vit B-12) 1,[address] one lozenge under tongue daily active Not Available Not Available No t Available Vitals Date Recorded Body mass index (BMI) Body height Oxygen saturation Oxygen saturation in Arterial blood by Pulse oximetry Heart rate Body temperature Body weight Systolic blood pressure Diastolic blood pressure Systolic blood pressure Diastolic blood pressure Provider Name and Address Organization Details Last Updated DateTime 1 24 kg/m2 157.48 cm 98 % 98 % 62 /min 98.4 [degF] 67773.6 g 190 mm[Hg] 80 mm[Hg] 186 mm[Hg] 80 mm[Hg] Not Available [facility] 3 00:44:25 Date Recorded Body mass index (BMI) Body height Oxygen saturation Oxygen saturation in Arterial blood by Pulse oximetry Heart rate Body temperature Body weight Systolic blood pressure Diastolic blood pressure Provider Name and Address Organization Details Last Updated DateTime 1 24.1 kg/m2 157.48 cm 98 % 98 % 64 /min 98 [degF] 27514.1 9 g 160 mm[Hg] 80 mm[Hg] Not Available [facility] 3 00:44:26 Date Recorded Body mass index (BMI) Body height Oxygen saturation Oxygen saturation in Arterial blood by Pulse oximetry Heart rate Body temperature Body weight Systolic blood pressure Diastolic blood pressure Provider Name and Address Organization Details Last Updated DateTime 2 24.3 kg/m2 157.48 cm 71 % 71 % 29 /min 97.8 [degF] 62303.7 9 g 150 mm[Hg] 70 mm[Hg] Not Available [facility] 3 00:44:26 Date Recorded Body mass index (BMI) Body height Oxygen saturation Oxygen saturation in Arterial blood by Pulse oximetry Heart rate Body temperature Body weight Systolic blood pressure Diastolic blood pressure Provider Name and Address Organization Details Last Updated DateTime 2 25 kg/m2 157.48 cm 91 % 91 % 66 /min 97.6 [degF] 22162.7 2 g 135 mm[Hg] 80 mm[Hg] Not Available [facility] 3 00:44:26 Date Recorded Body height Body mass index (BMI) Body weight Body temperature Respiratory rate Heart rate Systolic blood pressure Diastolic blood pressure Provider Name and Address Organization Details Last Updated DateTime 3 157.48 cm 24.3 kg/m2 41451.3 5 g 97.7 [degF] 16 /min 55 /min 143 mm[Hg] 65 mm[Hg] Iris Dobbins RN [place] [facility] 3 14:05:50 Social History Question Answer Notes LastModified by [employer] Details LastModified Time Tobacco Smoking Status Never Smoker Not Available [facility] 07/16/2022 00:41:20 Do You Have An Advance Directive? No MIGRATION.[id number] Information not available 07/16/2022 Are You Blind Or Do You Have Difficulty Seeing? No MIGRATION.094554 0442 Information not available 07/16/2022 What Is Your Level Of Caffeine Consumption? Moderate MIGRATION.186753 9855 Information not available 07/16/2022 In The 14 Days Before Symptom Onset, Have You Had Close Contact With A Laboratory-confirm ed COVID-19 While That Case Was Ill? No MIGRATION.516016 9401 Information not available 07/16/2022 In The 14 Days Before Symptom Onset, Have You Had Close Contact With A Person Who Is Under Investigation For COVID-19 While That Person Was Ill? No MIGRATION.059353 8100 Information not available 07/16/2022 Are You Deaf Or Do You Have Serious Difficulty Hearing? No MIGRATION.496206 2665 Information not available 07/16/2022 Which Illicit Or Recreational Drugs Have You Used? 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 MIGRATION.013486 9420 Information not available 07/16/2022 How Much Tobacco Do You Smoke? No MIGRATION.721827 2984 Information not available 07/16/2022 Have You Recently Traveled Abroad? No MIGRATION.433045 8075 Information not available 07/16/2022 Do You Have Difficulty Walking Or Climbing Stairs? No MIGRATION.212789 9028 Information not available 07/16/2022 Sex: Female Functional Status Question Answer Note LastModified by Organizat ion Details LastModified Time What is your level of alcohol consumption? None MIGRATION.910857 7358 Information not available 07/16/2022 Do you have transportation difficulties? No MIGRATION.342744 1460 Information not available 07/16/2022 Are you able to walk? YESWOREST MIGRATION.888265 0750 Information not available 07/16/2022 Do you have difficulty doing errands alone? No MIGRATION.359102 5844 Information not available 07/16/2022 Are you able to care for yourself? Yes MIGRATION.891157 3205 Information not available 07/16/2022 Do you have difficulty dressing or bathing? No MIGRATION.421941 8426 Information not available 07/16/2022 Do you or have you ever used e-cigarettes or vape? Never used electronic cigarettes MIGRATION.815478 1221 Information not available 07/16/2022 Mental Status Question Answer Note LastModified by Organizat ion Details LastModified Time Do you have difficulty concentrating, remembering or making decisions? No MIGRATION.[id number] 6 Information not available 07/16/2022 Family History Relationship Description Onset Age of this Age Resolved Age Notes LastModified by Organization Details LastModified Time Mother Diabetes mellitus MIGRATION.414 [id number] Not available 07/16/2022 00:42:31 Son Diabetes mellitus MIGRATION.108 [id number] Not available 07/16/2022 00:42:31 Father Hypertensive disorder MIGRATION.980 [id number] Not available 07/16/2022 00:42:31 Paternal Grandfather Hypertensive disorder MIGRATION.864 [id number] Not available 07/16/2022 00:42:31 Paternal Uncle Hypertensive disorder MIGRATION.684 [id number] Not available 07/16/2022 00:42:31 Maternal Grandmother Malignant tumor of breast MIGRATION.337 4433684 Not available 07/16/2022 00:42:31 Paternal Aunt Malignant tumor of breast times2 MIGRATION.483 [id number] Not available 07/16/2022 00:42:31 Sister Malignant neoplasm of lung MIGRATION.230 [id number] Not available 07/16/2022 00:42:31 Sister COVID-19 MIGRATION.307 [id number] Not available 07/16/2022 00:42:31 Medical History Condition Response BLINDNESS N RHEUMATIC FEVER N BLADDER PROBLEMS N OTHER # 1 N INFECTIOUS DISEASE N HEART ARRHYTHMIA N INSOMNIA N COPD N RADIATION / CHEMOTHERAPY N HIGH CHOLESTEROL / HYPERLIPIDEMIA N Other # 2 N EYE PROBLEMS N HYPERTHYROIDISM N BLOOD DISEASES N NEUROLOGICAL PROBLEMS N SURGERY N EDEMA N HYPOTHYROIDISM N DEPRESSION (INCLUDING POST ) N HAVE YOU BEEN HOSPITALIZED OR SEEN IN [facility] IN THE PAST YEAR ? N STROKE/TIA N THYROID DISEASE N BENIGN PROSTATIC HYPERPLASIA N MYOCARDIAL INFARCTION N OBESITY N EXCESSIVE PERSPIRATION N GERD/NAUSEA N ANEURYSM N OSTEOPOROSIS N INPATIENT PSYCH CARE N USE OF BLOOD THINNERS N NO SIGNIFICANT PAST MEDICAL HISTORY N SKIN PROBLEMS N DIABETES, TYPE N PARATHYROID DISEASE N BLOOD CLOTS N ASTHMA N HEPATITIS / LIVER DISEASE N PULMONARY DISEASE N GOUT N ALZHEIMER'S DISEASE N HERPES N RETINOPATHY N HEADACHES/MIGRAINES N SEIZURES/EPILEPSY N GI PROBLEMS N Low Testosterone N HEART DISEASE/HEART PROBLEMS N AIDS/HIV N KIDNEY DISEASE N LIVER DISEASE N HYPERTENSION Y CANCER: SPECIFY N BLOOD TRANSFUSION N ANESTHESIA COMPLICATIONS N ANEMIA/BLOOD DISORDER N ATRIAL FIBRILLATION N PULMONARY EMBOLISM N AUTOIMMUNE DISEASE N TUBERCULOSIS N GLAUCOMA N Gynecological HistoryNo gynecological history recorded. Obstetrics History GPAL:G 0 P 0 0 0 0 Past Encounters Encounter ID Performer Location Encounter Start Date Encounter Closed Date Diagnosis/Indication Diagnosis SNOMED-CT Code Diagnosis ICD10 Code Diagnosis Note [id number] Yusra Casanova MD _ATHENA_M IGRATION_ DEFAULT_1 _1 , 07/19/2020 00:00:00 07/19/2020 10:27:04 [id number] [facility] [place] [address] [place] [address] 07/20/2020 00:00:00 07/20/2020 15:10:47 [id number] Yusra Casanova MD Katherine_MARY JO [facility] [place] [address] [place] [address] 09/07/2020 00:00:00 09/07/2020 16:29:46 [id number] Yusra Casanova MD [facility] [place] [address] [place] [address] 12/04/2020 00:00:00 12/04/2020 18:31:22 [id number] Yusra Casanova MD [facility] [place] [address] [place] [address] 03/26/2021 00:00:00 03/26/2021 11:22:46 [id number] Yusra Casanova MD [facility] [place] [address] [place] [address] 07/23/2021 00:00:00 07/23/2021 11:22:50 [id number] Yusra Casanova MD [facility] [place] [address] [place] [address] 03/04/2022 00:00:00 03/04/2022 14:45:30 [id number] Yusra Casanova MD [facility] [place] [address] [place] [address] 02/24/2023 13:55:48 02/24/2023 15:18:53 Prolactinoma 889608682 D35.2 Last MRI from 2021 revealed smaller cyst- prolactin low and controlled - continue on cabergolin e twice weekly as patient tolerating well. Refer to endocrinol ogy per patient request. Osteopenia [id number] M85 .80 Continue on calcium 1200 mg daily along with vitamin D 3 800 IU daily. Continue with daily weight bearing exercise. Spent up to 20 minutes preparing to see the patient (eg, review of tests), obtaining and/or reviewing separately obtained history, performing a medically appropriat e examinatio n and evaluation , counseling and educating the patient, ordering medication s, tests, along with documentin g clinical informatio n in the electronic health record, independen tly interpreti ng results and communicat ing results to the patient. Patient can be followed by PCP - she/he is aware of my resignatio n and last day of February 27. If needed his/her PCP can refer patient to another endocrinol ogist in the area. All questions /concerns answered and refills necessary at visit today. Health Concerns Section Related Observation LastModified by Organization Detai ls LastModified Time None Recorded Concern Status LastModified by Organization Details LastModified Time None Recorded Advance Directives Directive N: Payers Encounter Date Sequence Insurance Name Policy Number Policy Diez Covered Member ID Diez Member ID Guarantor Name 02/24/2023 1 [place] Shadia Bettie Gillespie [id number] Shadia Gillespie 02/24/2023 2 [employer] (MEDICARE SUPPLEMENT) Shadia Gillespie [id number] Shadia Gillespie Notes Date Note Type Note Provider Name and Address Organization Details Recorded Time 02/24/2023 text/html 82 yo female com es in for follow up in management of prolactinoma and osteopenia. last seen in Feb 2022 at that time we continued cabergoline twice weekly as prolactin levels controlled/low. we recommended vitamin D and calcium for bone health. She has no issues with breast pain or discharge. She has no recent falls / fractures or kidney stones. labs from 02/14/23:cortisol 8.48 ug/dLa1c 5.2%prolactin <1 ng/mL Yusra Casanova MD [address] [facility] [address], [place], [address], [place] [facility] 02/24/2023 15:22:49 OBGyn Episode No OBEpisode recorded.
[2024-10-05 10:24] LABS: Alanine Aminotransferase 18 U/L (6-35); Albumin Level 4.6 g/dL (3.5-5.1); Alkaline Phosphatase 48 U/L (38-126); Anion Gap 8 mmol/L (4-12); Aspartate Amino Transferase 32 U/L (14-36); Bilirubin,Total 0.6 mg/dL (0.2-1.3); Blood Urea Nitrogen 13 mg/dL (7-17); Calcium 9.1 mg/dL (8.4-10.2); Carbon Dioxide 30 mmol/L (22-30); Chloride 99 mmol/L (98-107); Estimated Glomerular Filt Rate > 60; Glucose 89 mg/dL (65-110); Potassium 3.7 mmol/L (3.4-5.0); Sodium 137 mmol/L (137-145)
[2024-10-05 11:00] LABS: Free T4 Free Thyroxine 1.42 ng/dL (0.78-2.19)
[2024-10-06 05:27] LABS: FSH 48.7 mIU/mL; LH 18.8 mIU/mL; Prolactin 1.3 ng/mL
[2024-10-10 11:19] LABS: Z Score Female -0.8 SD (-2.0 - +2.0)
== END 2024-10-05 09:15 | disposition home or self-care (01) ==
PROVIDERS: PCP Family Medicine; Visit Provider Internal Medicine
DX: D35.2 Benign neoplasm of pituitary gland (principal)
CPT/HCPCS: 36415; 80053; 82024; 82533; 83001; 83002; 84146; 84305; 84439; 84443

== ENCOUNTER 2024-10-25 06:53 | Outpatient (CLI) | payer MEDICARE, OTHER, SELFPAY ==
--- OUTSIDE RECORDS SUMMARY | 2024-10-25 06:53 | XMS_ITS | Continuity of Care Document ---
Author Organization [facility] Address [address] [place] [address] Phone Care Team Providers Care Line Builder Name Role Phone Dmitry CHAWLA, OTR/L, Erna CASTILLO Unavailable Unavailable Procedures Procedure Date OT RE-EVALUATION THERAPEUTIC EXERCISES NEUROMUSCULAR RE-ED MANUAL THERAPY FUNC ACTIVITY 15 MIN PARAFFIN BATH THERAPEUTIC EXERCISES NEUROMUSCULAR RE-ED MANUAL THERAPY FUNC ACTIVITY 15 MIN PARAFFIN BATH THERAPEUTIC EXERCISES NEUROMUSCULAR RE-ED MANUAL THERAPY FUNC ACTIVITY 15 MIN PARAFFIN BATH BMI NOT Calculated Reason Specified Kamille ent NOT Eligible Pain Assess Negative DOC 2012 Medications Name Dose Freq Route DOC Jul No Falls or 1 Fall w/o Injury Screened f or Fall Risk OT EVALUATION THERAPEUTIC EXERCISES MANUAL THERAPY PARAFFIN BATH Advance Directives Directive Yes / No Effective Date File Name No Information Encounters Encounter Description Practice Location Reason(s) For Visit Diagnoses Date Provider Providers Copied on Encounter [facility], [address], [place], [place], [id number], [place] tel:[phone] [place] No Information 0 3 Dmitry Umanzor. [address] [facility], [address], [place], [place], Formerly named [facility], . tel:[phone], [place], [place], [address], tel:[phone] [place] No Information Apr-0 3-201 3 Hauschild Erna. [address] [place] [address], [address], [place], [place], Formerly named [facility], . tel:[phone] [address], [place], [place], [address], tel:[phone] [place] No Information Mar-2 7-201 3 Halizld Erna. [address] [place] [address], [address], [place], [place], Formerly named [facility], . tel:[phone], [place], [place], [address], tel:[phone] [place] Pain in joint involving hand Mar-2 0-201 3 [facility] Erna. [address] [place] [address], [address], [place], [address], . tel:[phone] Family History Family Member Type Diagnosis Age At Onset No Information Payers Payer name Insurance type Covered constitution party ID Authoriza tigodwin(s) [place] [id number] [facility] [id number] [facility] [id number] Social History Type Description Quantity Date Captured Comments Sex Female Smoking Status No Information Chief Complaint And Reason For Visit No Information Reason For Referral Reason For Referral No Information History Of Present Illness Encounter Date Complaint History Of Prese nt Illness No Information Functional Status Date Functional Assessmen t No Information Instructions Date Instruction Additional Infor mation No Information Assessments Type Assessment Date No Information Patient Care Teams Name Effective Dates (start - stop) Status Members No Information
--- OUTSIDE RECORDS SUMMARY | 2024-10-25 06:53 | XMS_ITS | Data Portability ---
Author Organization [facility] [employer], Main Office Address [address] [place] [address] Care Team Providers Care Brush Finisher Name Role Phone NATE LOUIE Primary Care Provider Assessment No assessment recorded. Plan of Treatment Reminders Order Date Submit Date Provider Last Modified By Organization Details Last Modified Time Details Appointments None recorded. Lab None recorded. Referral endocrinolo gy referral 2022 023 Priscila Gary MD, [address],, [facility] [address], [place], [address], 3 15:18:53 Procedures None recorded. Surgeries None recorded. Imaging None recorded. Medication Orders cabergoline 0.5 mg tablet 2022 023 [facility] 2425, [address] [facility], [place], [address], 14:29:01 Patient TargetsNo targets recorded. Patient InstructionsNo instructions recorded. Reason for Referral Endocrinology Referral for P rolactinoma Referring Physician: Yusra Casanova, Endocrinology, Encounter Date: 02/24/2023 Results Created Date Observation Date Name Description Value Unit Range Abnormal Flag Note LastModifiedBy Organization Detail LastModifiedTime 03/15/20 21 03/15/2021 XR, foot No observ ation record ed. [id number] [facility] (Imaging) [address] [facility] [address], [place], [address], 07/16/2022 00:55:13 07/03/19 22 07/02/2021 MRI, pitui tary, w/wo contr ast No observ ation record ed. [id number], [place], [address], 07/16/2022 00:55:13 02/20/2002/18/2022 MAMMO , scree clarice, digit al, bilat eral No observ ation record ed. [id number], [place], [address], 07/16/2022 00:55:13 02/22/20 22 02/18/2022 bone densi ty No observ ation record ed. [id number], [place], [address], 07/16/2022 00:55:13 Result Notes None recorded. 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 Medical Equipment None Reported. [...] % 71 % 29 /min 97.8 [degF] 91335.7 9 g 150 mm[Hg] 70 mm[Hg] Not Available [facility] 3 00:44:26 Date Recorded Body mass index (BMI) Body height Oxygen saturation Oxygen saturation in Arterial blood by Pulse oximetry Heart rate Body temperature Body weight Systolic blood pressure Diastolic blood pressure Systolic blood pressure Diastolic blood pressure Provider Name and Address Organization Details Last Updated DateTime 1 24 kg/m2 157.48 cm 98 % 98 % 62 /min 98.4 [degF] 11089.6 g 190 mm[Hg] 80 mm[Hg] 186 mm[Hg] 80 mm[Hg] Not Available [facility] 3 00:44:25 Date Recorded Body height Body mass index (BMI) Body weight Body temperature Respiratory rate Heart rate Systolic blood pressure Diastolic blood pressure Provider Name and Address Organization Details Last Updated DateTime 3 157.48 cm 24.3 kg/m2 33884.3 5 g 97.7 [degF] 16 /min 55 /min 143 mm[Hg] 65 mm[Hg] Iris Dobbins RN [place] [facility] [place] [facility] 3 14:05:50 Date Recorded Body mass index (BMI) Body height Oxygen saturation Oxygen saturation in Arterial blood by Pulse oximetry Heart rate Body temperature Body weight Systolic blood pressure Diastolic blood pressure Provider Name and Address Organization Details Last Updated DateTime 2 25 kg/m2 157.48 cm 91 % 91 % 66 /min 97.6 [degF] 77860.7 2 g 135 mm[Hg] 80 mm[Hg] Not Available [facility] 3 00:44:26 Date Recorded Body mass index (BMI) Body height Oxygen saturation Oxygen saturation in Arterial blood by Pulse oximetry Heart rate Body temperature Body weight Systolic blood pressure Diastolic blood pressure Provider Name and Address Organization Details Last Updated DateTime 1 24.1 kg/m2 157.48 cm 98 % 98 % 64 /min 98 [degF] 21363.1 9 g 160 mm[Hg] 80 mm[Hg] Not Available [facility] 3 00:44:26 Social History Question Answer Notes LastModified by Organizat ion Details LastModified Time Tobacco Smoking Status Never Smoker Not Available [facility] 07/16/2022 00:41:20 Do You Have An Advance Directive? No [id number] Information not available 07/16/2022 Are You Blind Or Do You Have Difficulty Seeing? No [id number].[id number] 4519 Information not available 07/16/2022 What Is Your Level Of Caffeine Consumption? Moderate MIGRATION.830020 6494 Information not available 07/16/2022 In The 14 Days Before Symptom Onset, Have You Had Close Contact With A Laboratory-confirm ed COVID-19 While That Case Was Ill? No [id number].[id number] 3454 Information not available 07/16/2022 In The 14 Days Before Symptom Onset, Have You Had Close Contact With A Person Who Is Under Investigation For COVID-19 While That Person Was Ill? No MIGRATION.329561 1237 Information not available 07/16/2022 Are You Deaf Or Do You Have Serious Difficulty Hearing? No MIGRATION.161222 4328 Information not available 07/16/2022 Which Illicit Or Recreational Drugs Have You Used? None MIGRATION.[id number] 2988 Information not available 07/16/2022 Do You Have A Medical Power Of Hydrostatic Tester? No MIGRATION.365878 9414 Information not available 07/16/2022 What Is Your Relationship Status? MIGRATION.212353 3338 Information not available 07/16/2022 How Much Tobacco Do You Smoke? No MIGRATION.961850 2112 Information not available 07/16/2022 Have You Recently Traveled Abroad? No MIGRATION.392038 2165 Information not available 07/16/2022 Do You Have Difficulty Walking Or Climbing Stairs? No MIGRATION.947153 6824 Information not available 07/16/2022 Sex: Female Functional Status Question Answer Note LastModified by Organizat ion Details LastModified Time What is your level of alcohol consumption? None MIGRATION.844647 0161 Information not available 07/16/2022 Do you have transportation difficulties? No MIGRATION.006281 0185 Information not available 07/16/2022 Are you able to walk? YESWOREST MIGRATION.905383 4542 Information not available 07/16/2022 Do you have difficulty doing errands alone? No MIGRATION.885389 9016 Information not available 07/16/2022 Are you able to care for yourself? Yes MIGRATION.794604 3844 Information not available 07/16/2022 Do you have difficulty dressing or bathing? No MIGRATION.877365 9473 Information not available 07/16/2022 Do you or have you ever used e-cigarettes or vape? Never used electronic cigarettes MIGRATION.535391 9778 Information not available 07/16/2022 Mental Status Question Answer Note LastModified by Organizat ion Details LastModified Time Do you have difficulty concentrating, remembering or making decisions? No [id number].[id number] 6 Information not available 07/16/2022 Family History Relationship Description Onset Age of this Age Resolved Age Notes LastModified by Organization Details LastModified Time Mother Diabetes mellitus [id number] [id number] Not available 07/16/2022 00:42:31 Son Diabetes mellitus MIGRATION.048 [id number] Not available 07/16/2022 00:42:31 Father Hypertensive disorder MIGRATION.552 [id number] Not available 07/16/2022 00:42:31 Paternal Grandfather Hypertensive disorder MIGRATION.223 [id number] Not available 07/16/2022 00:42:31 Paternal Uncle Hypertensive disorder MIGRATION.641 [id number] Not available 07/16/2022 00:42:31 Maternal Grandmother Malignant tumor of breast MIGRATION.647 [id number] Not available 07/16/2022 00:42:31 Paternal Aunt Malignant tumor of breast times2 MIGRATION.163 [id number] Not available 07/16/2022 00:42:31 Sister Malignant neoplasm of lung MIGRATION.440 [id number] Not available 07/16/2022 00:42:31 Sister COVID-19 MIGRATION.365 [id number] Not available 07/16/2022 00:42:31 Medical History Condition Response BLINDNESS N RHEUMATIC FEVER N BLADDER PROBLEMS N OTHER # 1 N INFECTIOUS DISEASE N HEART ARRHYTHMIA N INSOMNIA N RADIATION / CHEMOTHERAPY N COPD N HIGH CHOLESTEROL / HYPERLIPIDEMIA N Other # 2 N EYE PROBLEMS N HYPERTHYROIDISM N BLOOD DISEASES N NEUROLOGICAL PROBLEMS N SURGERY N EDEMA N HYPOTHYROIDISM N DEPRESSION (INCLUDING POST ) N HAVE YOU BEEN HOSPITALIZED OR SEEN IN [facility] IN THE PAST YEAR ? N STROKE/TIA N THYROID DISEASE N BENIGN PROSTATIC HYPERPLASIA N MYOCARDIAL INFARCTION N OBESITY N GERD/NAUSEA N EXCESSIVE PERSPIRATION N ANEURYSM N OSTEOPOROSIS N INPATIENT PSYCH [...] SNOMED-CT Code Diagnosis ICD10 Code Diagnosis Note [id number] Yusra Casanova MD _ATHENA_M IGRATION_ DEFAULT_1 _1 , 07/19/2020 00:00:00 07/19/2020 10:27:04 [id number] Yusra Casanova MD [facility] [address] [place] [address] 07/20/2020 00:00:00 07/20/2020 15:10:47 [id number] Yusra Casanova MD [facility] [address] [place] [address] 09/07/2020 00:00:00 09/07/2020 16:29:46 [id number] Yusra Casanova MD [facility] [address] [place] [address] 12/04/2020 00:00:00 12/04/2020 18:31:22 [id number] Yusra Casanova MD [facility] [address] [place] [address] 03/26/2021 00:00:00 03/26/2021 11:22:46 [id number] Yusra Casanova MD [facility] [address] [place] [address] 07/23/2021 00:00:00 07/23/2021 11:22:50 [id number] Yusra Casanova MD [facility] [address] [place] [address] 03/04/2022 00:00:00 03/04/2022 14:45:30 [id number] MD ANNE [facility] [address] [place] [address] 02/24/2023 13:55:48 02/24/2023 15:18:53 Prolactinoma 987769101 D35.2 Last MRI from 2021 revealed smaller cyst- prolactin low and controlled - continue on cabergolin e twice weekly as patient tolerating well. Refer to endocrinol ogy per patient request. Osteopenia 802412990 M85 .80 Continue on calcium 1200 mg [...] Diez Member ID Guarantor Name 02/24/2023 1 [employer] Shadia Gillespie [id number] Shadia Gillespie 02/24/2023 2 [facility] (MEDICARE SUPPLEMENT) Shadia Gillespie [id number] Shadia Gillespie Notes Date Note Type Note [...] 5.2%prolactin <1 ng/mL Yusra Casanova MD [address] [facility], [place] [address], [place], [address], [place] [facility] 02/24/2023 15:22:49 OBGyn Episode No OBEpisode recorded.
--- OUTSIDE RECORDS SUMMARY | 2024-10-25 06:53 | XMS_ITS | Clinical Summary ---
Author Organization [facility] Address [address] [place] [address] Care Team Providers Care In Service Education Teacher Name Role Phone Willow Gonzalez MD Primary Care Provider [phone] Allergies Active Allergy Reactions Criticality Noted Date Comments Codeine Medications escitalopram (LEXAPRO) 10 mg tablet Take 1 tablet (10 mg total) by mouth daily 5 Active losartan-hydroC HLOROthiazide (HYZAAR) 50-12.5 mg per tablet Take 1 tablet by mouth every morning 5 Active metoprolol XL (TOPROL-XL) 25 mg extended release tablet TAKE 1/2 TABLET BY MOUTH ONCE DAILY IN THE MORNING FOR 90 DAYS Active cabergoline (DOSTINEX) 0.5 mg tablet Take 1 tablet (0.5 mg total) by mouth 2 (two) times a week 24 tablet 3 5 Active nebivolol (BYSTOLIC) 10 mg tablet Take 10 mg by mouth daily. 10/20/19 25 Discontinu ed(Therapy completed) hydroCHLOROthia zide (MICROZIDE) 12.5 mg capsule Take 12.5 mg by mouth daily. 10/20/19 25 Discontinu ed(Therapy completed) cabergoline (DOSTINEX) 0.5 mg tablet TAKE 2 TABLETS BY MOUTH TWICE WEEKLY 16 tablet 1 0 10/20/19 25 Discontinu ed(Reorder ) amLODIPine (NORVASC) 10 mg tablet Take 1 tablet (10 mg total) by mouth daily 10/20/19 25 Discontinu ed(Therapy completed) amLODIPine (NORVASC) 5 mg tablet TAKE 1 TABLET BY MOUTH ONCE DAILY IN THE MORNING FOR 90 DAYS 10/20/19 25 Discontinu ed(Therapy completed) cyanocobalamin, vitamin B-12, 1,[address] one lozenge under tongue daily 10/20/19 25 Discontinu ed(Therapy completed) losartan (COZAAR) 100 mg tablet Take 1 tablet (100 mg total) by mouth daily 10/20/19 25 Discontinu ed(Therapy completed) Active Problems Problem Noted Date Diagnosed Date Osteopenia 02/24/2023 Impaired fasting glucose 09/12/2022 Acromegaly 09/26/2014 Hypertension 03/28/2011 Prolactinoma 03/28/2011 Overview (08/27/2017): Description: co secreting GH Encounters Date Type Department Care Team Description 10/19/2024 2:00 PM CDT Office Visit [facility] Endocrinology Metabolism and Lipid [address] [facility] [address], [address] [place] [address] Radha De Paz MD Acromegaly (HCC) (Primary Dx); Benign neoplasm of pituitary gland (HCC); Prolactinoma (HCC); Osteopenia, unspecified location; Other abnormal findings on diagnostic imaging of central nervous system 10/19/2024 Telephone [facility] Endocrinology Metabolism and Lipid [address] [facility] [address], [address] [place] [address] Darlene Villa RN Test Results (Re: labs and MRI results.) from Last 3 Months Immunizations Immunization Administration Dates Next Due Influenza, Quadrivalent, Hig h Dose, Preservative Free, Intrr 02/16/2023,03/17/2022 Influenza, Quadrivalent, Rec ombinant, Egg Free, Preservative Free, Intramuscular 03/13/2021,03/02/2020 Influenza, Trivalent, High D ose, Split, Preservative Free, Intramuscular 05/16/2024,02/25/2018 Influenza, Trivalent, Preservative Free, Intramu scular 03/18/2014 TD Preservative Free 09/16/2019 Medical History Medical History Date Comments Personal history of other me ntal and behavioral disorders History of depression - (Add ed by TW Conv) Family History Medical History Relation Name Comments Hypertension Father Family history of hypertension - (Added by TW Conv) Lung cancer Sister Family history of lung cancer - (Added by TW Conv) Relation Name Status Comments Father Sister Social History Tobacco Use Types Packs/Day Years Used Date Smoking Tobacco: Never Comments Unknown Sex and Gender Information Value Date Recorded Sex Assigned at Not on file 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 Gender Identity Not on file Sexual Orientation Not on file Obstetrics History Last Filed Vital Signs Vital Sign Reading Time Taken Comments Blood Pressure 119/65 10/19/2024 1:51 PM CDT Pulse 65 10/19/2024 1:51 PM CDT Temperature - - Respiratory Rate 18 10/19/2024 1:51 PM CDT Oxygen Saturation 96% 10/19/2024 1:51 PM CDT Inhaled Oxygen Concentration - - Weight 52.3 kg (115 lb 3.2 oz) 10/19/2024 1:51 P M CDT Height 152.4 cm (5') 10/19/2024 1:51 PM CDT Body Mass Index 22.5 10/19/2024 1:51 PM CDT Plan of Treatment Health Maintenance Due Date Last Done Comments Depression Screening 1940 Fall Risk Assessment 1940 Osteoporosis Screening-Bone Density Scan 1940 Hepatitis B Screening 09[birth year]21[birth year]1959 Pneumococcal vaccine 65+ (1 of 1 - PCV) 09/21/1991 Zoster Vaccine (1 of 2) 09/21/1991 Well Visit 65+ 2006 DTaP/Tdap/Td Vaccine (1 - Tdap) 09/17/2019 0 Covid-19 Vaccine (3 - 2023-2 5 season) 2024 08/10/2020, 07/20/2020 Influenza Vaccine Completed 05/16/2024, , 03/17/2022, Additional history exists Insurance MEDICARE [employer] [place] [employer] [place] [address] Care Teams In Service Education Teacher Relationship Specialty Start Date End Date Willow Gonzalez MD [address] [place] [address] PCP - General 09/30/16
--- OUTSIDE RECORDS SUMMARY | 2024-10-25 06:53 | XMS_ITS | Referral Summary ---
Author Organization [facility] Address [address] [place] [address] Care Team Providers Care Annual Campaign Manager Name Role Phone Willow Gonzalez MD Primary Care Provider [phone] Encounters Date Type Department Care Team Description 10/19/2024 Telephone [facility] Endocrinology Metabolism and Lipid [address] [facility] [address], [address] [place] [address] Darlene Villa RN Test Results (Re: labs and MRI results.) 10/19/2024 2:00 PM CDT Office Visit [facility] Endocrinology Metabolism and Lipid [address] [facility] [address], [address] [place] [address] Radha De Paz MD Acromegaly (HCC) (Primary Dx); Benign neoplasm of pituitary gland (HCC); Prolactinoma (HCC); Osteopenia, unspecified location; Other abnormal findings on diagnostic imaging of central nervous system from Last 3 Months Allergies Active Allergy Reactions Criticality Noted Date [...] Take 10 mg by mouth daily. 10/20/19 Discontinu ed(Therapy completed) hydroCHLOROthia zide (MICROZIDE) 12.5 mg capsule Take 12.5 mg by mouth daily. 10/20/19 Discontinu ed(Therapy completed) cabergoline (DOSTINEX) 0.5 mg tablet TAKE 2 TABLETS BY MOUTH TWICE WEEKLY 16 tablet 1 0 10/20/19 Discontinu ed(Reorder ) amLODIPine (NORVASC) 10 mg tablet Take 1 tablet (10 mg total) by mouth daily 10/20/19 Discontinu ed(Therapy completed) amLODIPine (NORVASC) 5 mg tablet TAKE 1 TABLET BY MOUTH ONCE DAILY IN THE MORNING FOR 90 DAYS 10/20/19 Discontinu ed(Therapy completed) cyanocobalamin, vitamin B-12, 1,[address] one lozenge under tongue daily 10/20/19 Discontinu ed(Therapy completed) losartan (COZAAR) 100 mg tablet Take 1 tablet (100 mg total) by mouth daily 10/20/19 Discontinu ed(Therapy completed) Active Problems Problem Noted Date Diagnosed Date Osteopenia 02/24/2023 Impaired fasting glucose 09/12/2022 Acromegaly 09/26/2014 Hypertension 03/28/2011 Prolactinoma 03/28/2011 Overview (08/27/2017): Description: co secreting GH Immunizations Immunization Administration Dates Next Due Influenza, Quadrivalent, Hig h Dose, Preservative Free, Intrr 02/16/2023,03/17/2022 Influenza, Quadrivalent, Rec ombinant, Egg Free, Preservative Free, Intramuscular 03/13/2021,03/02/2020 Influenza, Trivalent, High D ose, Split, Preservative Free, Intramuscular 05/16/2024,02/25/2018 Influenza, Trivalent, Preservative Free, Intramu scular 03/18/2014 TD Preservative Free 09/16/2019 Social History Tobacco Use Types Packs/Day Years Used Date Smoking Tobacco: Never Comments Unknown Sex and Gender Information Value Date Recorded Sex Assigned at Not on file 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
--- OUTSIDE RECORDS SUMMARY | 2024-10-25 06:55 | XMS_ITS | Continuity of Care Document ---
Author Organization [facility] Address [address] [place] [address] Phone Care Team Providers Care Linking Machine Operator Name Role Phone Dmitry CHAWLA, OTR/L, Erna [...] Diagnoses Date Provider Providers Copied on Encounter [facility], [address], [place], [place], [id number], [place] tel:[phone] [place] No Information 0 3 Dmitry Umanzor. [address] [facility], [address], [place], [place], [facility], . tel:[phone], [place], [place], [id number], tel:[phone] [place] No Information Apr-0 3-201 3 Haus[facility] Erna. [address] [place] [address], [address], [place], [place], [facility], . tel:[phone] [address], [place], [place], [address], tel:[phone] [place] No Information Mar-2 7-201 3 Halizld Erna. [address] [place] [address], [address], [place], [facility], . tel:[phone], [place], [place], [id number], tel:[phone] [place] Pain in joint involving hand Mar-2 0-201 3 [facility] Erna. [address] [place] [address], [address], [place], [address], . tel:[phone] Family History Family Member Type Diagnosis Age At Onset No Information Payers Payer name Insurance type Covered democrat ID Authoriza tigodwin(s) [place] [id number] [facility] [id number] [facility] [id number] Social History Type Description Quantity Date Captured [...]
== END 2024-10-25 06:54 | disposition home or self-care (01) ==
LOC: ANHLAB 06:53
PROVIDERS: PCP Family Medicine; Visit Provider Internal Medicine
DX: D35.2 Benign neoplasm of pituitary gland (principal); I10 Essential (primary) hypertension; E87.6 Hypokalemia; E53.8 Deficiency of other specified B group vitamins; M85.80 Other specified disorders of bone density and structure, unspecified site
CPT/HCPCS: 36415; 82533; 96372; J0834

== ENCOUNTER 2024-12-08 08:52 | Outpatient (CLI) | payer MEDICARE, OTHER, SELFPAY ==
--- NOTE | ~2024-12-08 | DEXA_ITS ---
Bone Density Report Name: JUAN KRISHNAMURTHY Age: 84 Sex: Female Ethnicity: White Date of : 1940 Indication: osteopenia; monitoring treatment; height loss; prior fracture; rheumatoid arthritis; Referring Provider: Karlene Lara Study: Bone densitometry was performed. Exam Date: December 08, 2024 Accession number: [id number] Bone Density: Region BMD T-score Z-score Classification AP Spine(L1-L4) 0.824 -2.0 0.8 Osteopenia Femoral Neck (Left) 0.610 -2.2 0.3 Osteopenia Total Hip (Left) 0.701 -2.0 0.3 Osteopenia Femoral Neck (Right) 0.610 -2.2 0.3 Osteopenia Total Hip (Right) 0.686 -2.1 0.1 Osteopenia Total Hip Mean 0.693 -2.1 0.2 Osteopenia World Health Organization criteria for BMD impression classify patients as: Normal (T-score at or above -1.0), Osteopenia (T-score between -1.0 and -2.5), or Osteoporosis (T-score at or below -2.5). 10-year Fracture Risk: FRAX not reported because: Prior hip or vertebral fracture Treated for osteoporosis Previous Exams: -- Region Exam Age BMD T-score BMD Change BMD Change Date g/cm2 vs Baseline vs Previous -- AP Spine (L1-L4) 12/08/2024 84 0.824 -2.0 -0.4% -0.4% 02/18/2022 81 0.827 -2.0 Total Hip(Left) 12/08/2024 84 0.701 -2.0 -4.1%* -4.1%* 02/18/2022 81 0.731 -1.7 Total Hip(Right) 12/08/2024 84 0.686 -2.1 -3.7% -3.7% 02/18/2022 81 0.712 -1.9 -- *Denotes significance at 95% confidence level, LSC for AP Spine = 0.022 g/cm2, LSC for Total Hip = 0.027 g/cm2 Clinical Information Provided by Patient: Have had a previous hip or vertebral fracture Has had a low trauma fracture Has rheumatoid arthritis Is being treated for osteoporosis Has used the following medications: Vitamin D, Calcium Patient maximum height was 62 Menopause Age: 49 No regular weight bearing exercise Does not regularly consume dairy products Drinks caffeinated beverages Onset of menses at age 14 Number of children 3 Impression: The patient has low bone mass, based on the Left Femoral Neck T-score. The patient has risk factors, including: previous fracture. The BMD for the Total Hip(Left) decreased, changing by -4.1% since the last DXA exam. Discussion: SIGNIFICANT BONE LOSS OBSERVED. Adherence to therapy (including calcium and vitamin D intake) should be assessed. If compliance is not a factor, review management and exclusion of secondary causes of bone loss. It is important to ask patients whether they are taking their medications and to encourage continued and appropriate compliance with their osteoporosis therapies to reduce fracture risk. It is also important to review their risk factors and encourage appropriate calcium and vitamin D intakes, exercise, fall prevention and other lifestyle measures. Follow-Up: Consider a repeat BMD and Vertebral Fracture Assessment (VFA) exam in 2 years or sooner if medically necessary, to reassess this patient's status. Reported by: CARLTON on 12/08/2024 9:21:00 AM. Reviewed, dictated and finalized at location A.
== END 2024-12-08 08:53 | disposition home or self-care (01) ==
LOC: MICIMG 08:55
PROVIDERS: PCP Family Medicine; Visit Provider Nurse Practitioner Family
DX: M85.89 Other specified disorders of bone density and structure, multiple sites (principal); Z78.0 Asymptomatic menopausal state
CPT/HCPCS: 77080